=== PATIENT | male | born 1970 | race African-American/Black ===

== ENCOUNTER → 2020-02-11 15:14 | Outpatient (BNVA) | payer SELFPAY | PROVIDERS: PCP Internal Medicine; Visit Provider Physician Assistant ==

== ENCOUNTER → 2020-06-04 15:27 | Outpatient (BNVA) | payer OTHER, SELFPAY | PROVIDERS: PCP Internal Medicine; Visit Provider Internal Medicine ==

== ENCOUNTER → 2020-08-05 15:20 | Outpatient (BNVA) | payer OTHER, SELFPAY | PROVIDERS: PCP Internal Medicine; Visit Provider Internal Medicine ==

== ENCOUNTER 2020-10-31 11:28 | Emergency (ER) | payer OTHER, SELFPAY ==
[2020-10-31 11:47] VITALS: BP 153/99; PULSE 75; RESP 18; TEMP 36.6; O2SAT 96; BMI 32.1
[2020-10-31] MEDS: Amoxicillin/Potassium Clav 875 MG TABLET PO (13:19)
[2020-10-31] MEDS: dexAMETHasone 2 MG TABLET 10 MG PO (13:19)
[2020-10-31 13:34] LABS: IDNOW Serial# 08D9AD1C; Strep A Nucleic Acid Negative (Negative)
--- NOTE | 2020-10-31 14:04 | ED.GENADULT ---
HPI - General Adult General Chief complaint: Upper Respiratory Symptoms Stated complaint: swollen throat Time Seen by Provider: 10/31/20 12:41 Source: patient Mode of arrival: ambulatory History of Present Illness HPI narrative: 50-year-old male with a past medical history of KAREN on CPAP presenting to the ED complaining of throat/uvular swelling since this morning with painful swallowing. Reports mild radiation of pain to left ear. Denies fever, chills drainage from her, inability to handle side grew shins/swallow, cough, recent travel, sick contacts Onset (ago): hour(s) Related Data Previous Rx's Medication Instructions Recorded amoxicillin 875 mg-potassium 1 tab PO Q12H 7 Days #14 tab 10/31/20 clavulanate 125 mg tablet (Augmentin) Allergies Allergy/AdvReac Type Severity Reaction Status Date / Time ibuprofen [IBUPROFEN] Allergy Intermediate ITCHY Verified 10/31/20 11:47 EYES, RUNNY NOSE naproxen [Aleve] Allergy Unknown triggers Verified 10/31/20 11:47 asthma Review of Systems Review of Systems: Constitutional: No Fever, No Chills ENT/Mouth: + Ear Pain, No Nasal Congestion, No Hoarseness, + sore throat, No Rhinorrhea, No Swallowing Difficulty Cardiovascular: No Chest Pain, No SOB Respiratory: No Cough, No Wheezing Gastrointestinal: No Nausea, No Vomiting, No Abdominal pain Musculoskeletal: No joint pain, No Myalgias Skin: No Skin Lesions, No rash Yes all other systems are reviewed and are negative [facility] Past Medical History Attestation statement: The following information was validated with the patient. Medical History Obesity (BMI 30-39.9) KAREN on CPAP Social History Social History Alcohol intake: never Patient Tobacco Use Status: Never used Tobacco Use of substances other than those prescribed or required for medical reasons: No Advance Directives: No Advance Directives Information Provided: No Physical Exam Vital Signs: Vital Signs: Last Vital Signs Temp 97.8 F 10/31/20 11:47 Pulse 75 10/31/20 11:47 Resp 18 10/31/20 11:47 BP 153/99 H 10/31/20 11:47 Pulse Ox 96 10/31/20 11:47 Body Mass Index 32.1 Const: General: cooperative, healthy appearing and no acute distress Orientation/consciousness: patient oriented x3 Limitations: no limitations HENMT: Head: Yes normal to inspection Ears: hearing grossly normal bilaterally, external ears normal and TM's normal bilaterally General nose exam: Normal external nose present Face and sinus: Yes normal facial exam Throat: Yes tonsils normal, Yes uvula midline, No peritonsillar mass, No uvula laterally displaced and Yes uvular edema (+ uvular swelling) Eyes: General: appearance normal, both eyes and all related structures EOM: EOMs intact bilaterally Neck: Neck: Yes normal visual inspection Resp: Other: Talking in complete sentences, no respiratory distress, no stridor Effort & Inspection: normal respiratory effort, no audible wheezes, no pursed lip breathing, no respiratory distress, no stridor and no tripod positioning Auscultation: clear to auscultation bilaterally Cardio: Rate: regular rate Heart sounds: S1 normal heart sound present and S2 normal heart sound present GI: Inspection: Yes normal to inspection Skin: Rashes: no rashes Wounds: no wounds Neuro: General: patient oriented x3 Gait exam (Neuro): Normal gait present Extrem: General: Yes normal to inspection Course Course Course Narrative: -rapid strep negative. COVID-19/influenza/RSV pending however patient would like to be discharged prior to results, will call him with positive results Medical Decision Making MDM Narrative Medical decision making narrative: 50-year-old male with a past medical history of KAREN on CPAP presenting to the ED complaining of throat/uvular swelling since this morning with painful swallowing. On exam VSS, NAD, nontoxic appearing, talking in complete sentences, in no respiratory distress, handling secretions, no stridor, uvular edema/swelling noted on exam, tonsil WNL, no evidence of [employer]. Exam consistent with uvulitis. Will test for strep throat and COVID-19 Plan: PO Decadron, p.o. Augmentin, strict return precautions discussed with patient including continue to worsening swelling, difficulty breathing, wheezing, inability to handle secretions/follow/breath return to the ED immediately, he verbalized understanding Lab Data Labs: Lab Results 10/31/20 Range/Units 13:11 S. pyogenes GrpA JANAY Negative (Negative) Discharge Plan Discharge Clinical Impression: Uvulitis Patient Disposition: Home, Self-Care Instructions: Uvulitis (ED) Additional Instructions: You have inflammation of the uvula, your given an oral steroid today in the ED, Augmentin is also an antibiotic please take as prescribed You need to follow-up with her primary care doctor in the next 2 days If her swelling persists or worsens, you are unable to handle her oral secretions, you have fever, have any difficulty breathing or worsening oral swelling return to the ED immediately Prescriptions: New amoxicillin-pot clavulanate [Augmentin] 875-125 mg tablet 1 tab PO Q12H 7 Days Qty: 14 RF: 0 Referrals: Po,Edith Lassiter MD [Primary Care Provider] - 2 days Stand Alone Forms: Work/School Release
[2020-10-31 15:11] LABS: Influenza A PCR NEGATIVE (Negative); Influenza B PCR NEGATIVE (Negative); Resp Syncy Virus RNA Qual PCR NEGATIVE (Negative); SARS COV2 PCR INHOUSE NEGATIVE (Negative)
== END 2020-10-31 14:51 | disposition home or self-care (01) ==
PROVIDERS: Physician Assistant; Emergency Provider Emergency Medicine; PCP Internal Medicine
DX: K12.2 Cellulitis and abscess of mouth (principal); Z20.822 Contact with and (suspected) exposure to COVID-19; J02.9 Acute pharyngitis, unspecified
CPT/HCPCS: 0241U; 36415; 87651; 99283; 99284; J8540

== ENCOUNTER → 2021-02-11 16:03 | Outpatient (BNVA) | payer OTHER, SELFPAY | PROVIDERS: PCP Internal Medicine; Visit Provider Internal Medicine ==

== ENCOUNTER 2021-03-02 08:43 | Emergency (ER) | payer OTHER, SELFPAY ==
[2021-03-02 09:42] VITALS: BP 135/99; PULSE 112; RESP 18; TEMP 37.6; O2SAT 95; BMI 32.1
[2021-03-02 10:01] LABS: COVID-19 Test Positive (Negative)
--- NOTE | 2021-03-02 10:14 | ED_ITS ---
HPI - URI/Sore Throat General Chief Complaint: Upper Respiratory Symptoms Stated Complaint: Flu like symptoms/1 vaccine shot Time Seen by Provider: 03/02/21 09:34 Source: patient Mode of arrival: ambulatory Limitations: no limitations History of Present Illness HPI Narrative: 50-year-old male with history of diabetes, high blood pressure, sleep apnea, obesity here with reports of chills, body aches, cough, runny nose, headache since yesterday. Patient received 1 dose of Moderna but did not received any other doses COVID. No difficulty breathing, chest pain, abdominal pain, vomiting, diarrhea, fever. Related Data Allergies Allergy/AdvReac Type Severity Reaction Status Date / Time ibuprofen [IBUPROFEN] Allergy Intermediate ITCHY Verified 02/11/21 16:15 EYES, RUNNY NOSE naproxen [Aleve] Allergy Unknown triggers Verified 02/11/21 16:15 asthma Review of Systems Review of Systems: Yes all other systems are reviewed and are negative Constitutional: Constitutional: Reports no additional constitutional complaints, Reports body ache(s), Reports chills, Denies fever(s), Reports headache(s) and Denies weakness Eyes: Eyes: Reports no additional eye complaints and Denies change in vision ENT: Reports system reviewed and no additional complaints, except as documented, Denies dizziness, Reports headache(s), Denies nasal congestion, Reports nasal discharge and Denies neck pain Cardiovascular: Cardiovascular: Reports no additional cardiovascular complaints, Denies chest pain, Denies leg edema and Denies dyspnea Respiratory: Respiratory: Reports no additional respiratory complaints, Reports cough and Denies dyspnea Gastrointestinal: Gastrointestinal: Reports no additional gastrointestinal complaints, Denies abdominal pain, Denies diarrhea, Denies nausea and Denies vomiting Genitourinary: Genitourinary: Denies urinary incontinence Musculoskeletal: Musculoskeletal: Reports no additional musculoskeletal complaints, Denies back pain, Denies arthralgias, Denies joint swelling, Denies neck pain, Denies numbness and Denies tingling Integumentary/Breasts: Skin/Breast: Reports system reviewed and no additional complaints, except as docu and Denies rash Neurologic: Denies Abnormal speech present, Denies dizziness, Reports headache(s), Denies numbness, Denies tingling and Denies weakness [facility] Past Medical History Attestation statement: The following information was validated with the patient. Source: old records reviewed and nursing notes reviewed Medical History (Updated 03/02/21 @ 10:09 by Idalia Mixon NP) Asthma Borderline diabetes HTN (hypertension) Obesity (BMI 30-39.9) KAREN on CPAP Social History Social History Alcohol intake: never Patient Tobacco Use Status: Never used Tobacco Advance Directives: No Advance Directives Information Provided: No Physical Exam Vital Signs: Vital Signs: Last Vital Signs Temp 99.7 F 03/02/21 09:42 Pulse 112 H 03/02/21 09:42 Resp 18 03/02/21 09:42 BP 135/99 H 03/02/21 09:42 Pulse Ox 95 03/02/21 09:42 BMI result Body Mass Index 32.1 Const: General: cooperative, healthy appearing, comfortable and no acute distress Orientation/consciousness: patient oriented x3 Limitations: no limitations HENMT: Head: Yes normal to inspection Ears: hearing grossly normal bilaterally and TM's normal bilaterally General nose exam: Normal external nose present Face and sinus: Yes normal facial exam Mouth: Normal oral and palatal mucosa present Throat: Yes posterior oropharynx normal, Yes tonsils normal and Yes uvula midline Eyes: General: appearance normal, both eyes and all related structures Pupils: Equal, round and reactive pupils present Neck: Neck: Yes normal visual inspection, Yes full ROM, Yes no lymphadenopathy and Yes no meningeal signs Chest: Chest palpation & inspection: normal inspection of the chest Resp: Effort & Inspection: normal respiratory effort Auscultation: clear to auscultation bilaterally Cardio: Rate: regular rate Rhythm: regular rhythm Peripheral pulses: Peripheral pulses 2+ throughout GI: Inspection: Yes normal to inspection Palpation (GI): Soft to palpation and nontender Auscultation: normal bowel sounds Back/Spine/Pelvis: Thoracic/Lumbar Spine: thoracic and lumbar spine normal to inspection Skin: General skin exam: no rashes or lesions noted Neuro: General: patient oriented x3, no meningeal signs, no focal motor deficits and normal sensation to monofilament Cranial nerves: Yes Equal, round and reactive pupils present Cognition (Neuro): normal cognition Speech: No Abnormal speech present Gait exam (Neuro): Normal gait present Motor exam (neuro): 5/5 motor strength present throughout Extrem: General: Yes normal to inspection, Yes no pedal edema and Yes no calf tenderness Course Course Course Narrative: 50-year-old male here with cough, runny nose, chills, body aches and headache since last night. On arrival the patient is well appearing. Mild tachycardia with a low-grade fever. Speaking full sentences. Lung sounds clear. No hypoxia or tachypnea. Rapid COVID test is positive. We discussed quarantine of 10 days. We discussed monoclonal antibodies. A referral was sent to [facility] for the patient. He was given a copy of this. Reviewed worrisome signs and symptoms of when to return to the emergency department. Comfortable discharge home. MDM - URI/Sore Throat Medical Records Attestation: I reviewed the patient's medical records. Lab Data Attestation: I reviewed the patient's lab results. Labs: Lab Results 03/02/21 Range/Units 09:43 COVID-19 ([facility]) Positive A (Negative) COVID-19 Clin Com See Note Discharge Plan Discharge Clinical Impression: COVID-19 Patient Disposition: Home, Self-Care Instructions: COVID-19 (Coronavirus Disease 2019) (ED) Additional Instructions: Quarantine 10 days from onset of symptoms Tylenol for pain or fever See referral for monoclonal antibodies Return for shortness of breath or chest pain Referrals: Edith Kennedy MD [Primary Care Provider] - 2 days Stand Alone Forms: Work/School Release Interventions: ED Discharge Assessment Last Done: 03/02/21 10:19 Discharge Date/Time: 03/02/21 10:20
== END 2021-03-02 10:20 | disposition home or self-care (01) ==
PROVIDERS: Emergency Provider Emergency Medicine; PCP Internal Medicine
DX: U07.1 COVID-19 (principal); E11.9 Type 2 diabetes mellitus without complications; I10 Essential (primary) hypertension; J45.909 Unspecified asthma, uncomplicated
CPT/HCPCS: 36415; 87635; 99283

== ENCOUNTER 2021-03-06 13:07 | Emergency (ER) | payer OTHER, SELFPAY ==
--- NOTE | ~2021-03-06 | XR_ITS ---
EXAMINATION: XR CHEST CLINICAL INFORMATION: Chest pain. COMPARISON: 12/26/2014 chest radiographs. TECHNIQUE: Frontal view of the chest was obtained. FINDINGS: No significant abnormality is noted involving the heart, lungs, mediastinum, bony thorax or soft tissues. XR/XR chest 1V IMPRESSION: No acute cardiopulmonary process.
[2021-03-06 14:09] LABS: COVID-19 Test Positive (Negative); IDNOW Serial# 9DD0AD1C
[2021-03-06 15:46] VITALS: BP 166/107; PULSE 90; RESP 18; TEMP 36.9; O2SAT 95; BMI 32.1
--- NOTE | 2021-03-06 16:08 | ECG_ITS ---
Test Reason : CHEST PAIN Blood Pressure : / mmHG Vent. Rate : 092 BPM Atrial Rate : 092 BPM P-R Int : 148 ms QRS Dur : 102 ms QT Int : 366 ms P-R-T Axes : 065 -44 066 degrees QTc Int : 452 ms Normal sinus rhythm Left axis deviation Abnormal ECG When compared with ECG of 12-JUN-2013 15:24, QRS axis Shifted left Referred By: Virginia Lay Electronically Signed By:Zane Junior
--- NOTE | 2021-03-06 16:14 | ED_ITS ---
HPI - URI/Sore Throat General Chief Complaint: Upper Respiratory Symptoms Stated Complaint: +COVID symptoms worsening Time Seen by Provider: 03/06/21 16:00 Source: patient Mode of arrival: ambulatory Limitations: no limitations History of Present Illness HPI Narrative: 50-year-old male presents for chest pain and COVID positive symptoms. Was tested positive on 03/02/2021. States that his fatigue and muscle aches have increased since. MD elicited complaint: fever, cough and nasal congestion Onset (ago): week(s) (1) Consistency: constant Severity: moderate Description of mucous: clear Able to tolerate fluids by mouth: Yes Exacerbating factors: exertion Relieving factors: nothing Context: sick contacts Associated symptoms: fever, chills, myalgias, headache, nasal congestion, sore throat, cough and shortness of breath Treatments prior to arrival: acetaminophen Related Data Allergies Allergy/AdvReac Type Severity Reaction Status Date / Time ibuprofen [IBUPROFEN] Allergy Intermediate ITCHY Verified 03/06/21 15:46 EYES, RUNNY NOSE naproxen [Aleve] Allergy Unknown triggers Verified 03/06/21 15:46 asthma Review of Systems Review of Systems: Constitutional: positive Fever, positive Chills, positive fatigue, positive Malaise ENT/Mouth: positive sore throat, positive runny nose Eyes: No Discharge Cardiovascular: Positive Chest Pain, positive SOB Respiratory: positive Cough, No Sputum, No Wheezing, No Smoke Exposure, No Dyspnea Gastrointestinal: No Nausea, No Vomiting, No Diarrhea Genitourinary: no irregular bleeding, No Dysuria, No Urinary Frequency, No Hematuria, No Urinary Incontinence, No Urgency, No Flank Pain, Musculoskeletal: positive Myalgia Skin: No rash Neuro: positive Headache Yes all other systems are reviewed and are negative [facility] Past Medical History Attestation statement: The following information was validated with the patient. Source: old records reviewed Medical History Asthma Borderline diabetes HTN (hypertension) Obesity (BMI 30-39.9) KAREN on CPAP Social History Social History Alcohol intake: never Patient Tobacco Use Status: Never used Tobacco Advance Directives: No Advance Directives Information Provided: No Physical Exam Vital Signs: Vital Signs: Last Vital Signs Temp 99.3 F 03/06/21 18:48 Pulse 85 03/06/21 18:48 Resp 14 03/06/21 18:48 BP 146/100 H 03/06/21 18:48 Pulse Ox 96 03/06/21 18:48 BMI result Body Mass Index 32.1 Appearance: Alert. Oriented X3. mild distress. Eyes: Pupils equal, round and reactive to light. sclera nonicteric. EOMI. ENT: Pharynx normal. Moist mucous membranes. Neck: Normal inspection. Neck supple. No nuchal rigidity. CVS: Normal heart rate and rhythm. Pulses normal. Respiratory: No respiratory distress. Lung sounds clear to auscultation all lobes. Abdomen: Soft and nontender. Skin: Skin warm and dry. Normal skin color. Normal skin turgor. Extremities: No lower extremity edema. Moves all extremities against resistance. Gait well-balanced well coordinated. Neuro: No motor deficit. No sensory deficit. Cranial nerves 2-12 intact. Course Course Course Narrative: 50-year-old male known COVID positive on 03/02/2021 presents with chest pain, and persistent COVID symptoms. States that he has had fevers, chills, has muscle aches, chest pain and fatigue. He did not obtain monoclonal antibodies Referral that was given to him on 03/02 because he could not reach the facility. at this time, patient does have chest pain to palpation, even unlabored respirations, lungs clear to auscultation all lobes, O2 sat 95% on room air. Appears nontoxic but tired. Patient does have a history diabetes and hypertension will rule out ACS. Second trop is negative. Plan of care to discharge home and for patient follow- up with primary care physician and/or Cardiology as needed for hypertension. Patient verbalized understanding of and agrees to plan of care discharge home. MDM - URI/Sore Throat MDM Narrative Medical decision making narrative: ACS, COVID-19 Differential Diagnosis Differential diagnosis: Likely upper respiratory infection, viral infection, bronchitis and influenza Medical Records Attestation: I reviewed the patient's medical records. Lab Data Attestation: I reviewed the patient's lab results. Result diagrams: 03/06/21 16:28 03/06/21 16:28 Labs: Lab Results 03/06/21 03/06/21 03/06/21 Range/Units 13:35 16:28 16:28 WBC 7.7 (4.8-10.8) X10*3/uL RBC 5.33 (4.60-5.80) X10*6/uL Hgb 15.4 (14.0-18.0) g/dl Hct 45.8 (42.0-52.0) % MCV 85.9 (80.0-98.0) fL MCH 28.9 (27.0-33.0) pg MCHC 33.6 (31.0-36.0) g/dl RDW 12.4 (11.0-16.0) % Plt Count 188 (160-400) X10*3/uL MPV 9.5 (9.4-12.4) fL Immature Gran % (Auto) 0.3 (0.0-0.4) % Neut % (Auto) 57.2 (45-73) % Lymph % (Auto) 19.2 L (20-40) % Lawrence % (Auto) 22.6 H (2-11) % Eos % (Auto) 0.4 (0-4) % Baso % (Auto) 0.3 (0-2) % Lymph # (Auto) 1.5 (1.2-4.9) X10*3/uL Lawrence # (Auto) 1.7 H (0.1-1.2) X10*3/uL Eos # (Auto) 0.0 (0.0-0.4) X10*3/uL Baso # (Auto) 0.0 (0.0-0.2) X10*3/uL Abs Immat Gran (auto) 0.02 (0.00-0.03) X10*3/uL Absolute Neuts (auto) 4.4 (2.0-8.3) x10*3/uL Absolute Nucleated RBC 0.000 (0.0-0.012) X10*3/uL Nucleated RBC % (auto) 0.0 (0.0-0.2) /100WBC Smear Tech's Comments VERIFIED Sodium 139 (135-145) mmol/L Potassium 4.3 (3.3-5.1) mmol/L Chloride 103 (96-108) mmol/L Carbon Dioxide 27 (22-29) mmol/L Anion Gap 13 (12-20) BUN 17 H (9-16) mg/dL Creatinine 1.09 (0.5-1.4) mg/dL Estim Creat Clear Calc 101.8 Estimated GFR > 60 Random Glucose 74 (60-115) mg/dL Calcium 9.1 (8.4-10.2) mg/dL Troponin I High Sens (<3.5-35.0) ng/L COVID-19 ([facility]) Positive A (Negative) COVID-19 Clin Com See Note 03/06/21 03/06/21 Range/Units 16:28 18:50 WBC (4.8-10.8) X10*3/uL RBC (4.60-5.80) X10*6/uL Hgb (14.0-18.0) g/dl Hct (42.0-52.0) % MCV (80.0-98.0) fL MCH (27.0-33.0) pg MCHC (31.0-36.0) g/dl RDW (11.0-16.0) % Plt Count (160-400) X10*3/uL MPV (9.4-12.4) fL Immature Gran % (Auto) (0.0-0.4) % Neut % (Auto) (45-73) % Lymph % (Auto) (20-40) % Lawrence % (Auto) (2-11) % Eos % (Auto) (0-4) % Baso % (Auto) (0-2) % Lymph # (Auto) (1.2-4.9) X10*3/uL Lawrence # (Auto) (0.1-1.2) X10*3/uL Eos # (Auto) (0.0-0.4) X10*3/uL Baso # (Auto) (0.0-0.2) X10*3/uL Abs Immat Gran (auto) (0.00-0.03) X10*3/uL Absolute Neuts (auto) (2.0-8.3) x10*3/uL Absolute Nucleated RBC (0.0-0.012) X10*3/uL Nucleated RBC % (auto) (0.0-0.2) /100WBC Smear Tech's Comments Sodium (135-145) mmol/L Potassium (3.3-5.1) mmol/L Chloride (96-108) mmol/L Carbon Dioxide (22-29) mmol/L Anion Gap (12-20) BUN (9-16) mg/dL Creatinine (0.5-1.4) mg/dL Estim Creat Clear Calc Estimated GFR Random Glucose (60-115) mg/dL Calcium (8.4-10.2) mg/dL Troponin I High Sens 18.9 19.6 (<3.5-35.0) ng/L COVID-19 ([facility]) (Negative) COVID-19 Clin Com Imaging Data Chest x-ray: Attestation: I personally reviewed and interpreted this imaging study as follows: Radiologist's impression: EXAMINATION: XR CHEST CLINICAL INFORMATION: Chest pain. COMPARISON: 12/26/2014 chest radiographs. TECHNIQUE: Frontal view of the chest was obtained. FINDINGS: No significant abnormality is noted involving the heart, lungs, mediastinum, bony thorax or soft tissues. XR/XR chest 1V IMPRESSION: No acute cardiopulmonary process. ? ECG Data Attestation: I personally reviewed and interpreted this ECG as follows: ECG interpretation date: 03/06/21 ECG interpretation time: 16:20 Prior ECG tracings: available for review Interpretation: Vent. Rate : 092 BPM ? ? Atrial Rate : 092 BPM ?? P-R Int : 148 ms? QRS Dur : 102 ms ? ? QT Int : 366 ms ? ? ? P-R-T Axes : 065 -44 066 degrees ?? QTc Int : 452 ms ? Normal sinus rhythm Left axis deviation Abnormal ECG When compared with ECG of 12-JUN-2013 15:24, QRS axis Shifted left Discharge Plan Discharge Clinical Impression: COVID-19, Non-cardiac chest pain Hypertension Qualifiers: Hypertension type: primary hypertension Qualified Code(s): I10 - Essential (primary) hypertension Patient Disposition: Home, Self-Care Instructions: Covid-19 Viral Syndrome and Novel Coronavirus (ED) Hey/Ath, Hypertension (ED), Noncardiac Chest Pain (ED), Chest Wall Pain (ED), Hypertension and Diabetes (ED), COVID-19 (Coronavirus Disease 2019) (ED) Additional Instructions: You were evaluated for his symptoms consistent with COVID-19 as UR COVID-19 positive and chest pain. Your EKG is normal. Your cardiac enzymes are within normal limits. Please follow-up with Cardiology. You do have hypertension, continue to take your r blood pressure medications as prescribed. If he do not have any blood pressure medications prescribed to you must follow-up with her primary care physician as you need blood pressure medications to control your blood pressure. Thank you for choosing this emergency department for evaluation. Please follow-up with primary care physician as needed. Return to the emergency department for any new, concerning, or worsening symptoms. Referrals: Edith Kennedy MD [Primary Care Provider] - 2 days (Hypertension) Stand Alone Forms: Work/School Release Interventions: ED Discharge Assessment Last Done: 03/06/21 20:01 Discharge Date/Time: 03/06/21 20:56
[2021-03-06 16:33] LABS: Basophils Percent Auto 0.3 % (0-2); Eosinophils Percent Auto 0.4 % (0-4); Hematocrit 45.8 % (42.0-52.0); Hemoglobin 15.4 g/dl (14.0-18.0); Imm Gran Abs Auto 0.02 X10*3/uL (0.00-0.03); Imm Gran Pct Auto 0.3 % (0.0-0.4); Lymphocytes Absolute Auto 1.5 X10*3/uL (1.2-4.9); Lymphocytes Percent Auto 19.2 % (20-40); MANUAL DIFF FLAG SCAN; Mean Corpuscular HGB Conc 33.6 g/dl (31.0-36.0); Mean Corpuscular Hemoglobin 28.9 pg (27.0-33.0); Mean Corpuscular Volume 85.9 fL (80.0-98.0); Mean Platelet Volume 9.5 fL (9.4-12.4); Monocytes Absolute Auto 1.7 X10*3/uL (0.1-1.2); Monocytes Percent Auto 22.6 % (2-11); Neutrophils Absolute Auto 4.4 x10*3/uL (2.0-8.3); Neutrophils Percent Auto 57.2 % (45-73); Platelet Count 188 X10*3/uL (160-400); Red Blood Count 5.33 X10*6/uL (4.60-5.80); Red Cell Distribution Width 12.4 % (11.0-16.0); SCAN SMEAR FLAG 1; White Blood Count 7.7 X10*3/uL (4.8-10.8)
[2021-03-06 16:37] VITALS: BP 148/103; PULSE 87; RESP 18; TEMP 37.8; O2SAT 97
[2021-03-06 16:52] LABS: Troponin-I High Sensitivity 18.9 ng/L (<3.5-35.0)
[2021-03-06 16:54] LABS: SLIDE REVIEW VERIFIED
[2021-03-06] MEDS: Acetaminophen 325 MG TABLET 650 MG PO (17:00)
[2021-03-06 17:01] LABS: Anion Gap 13 (12-20); Blood Urea Nitrogen 17 mg/dL (9-16); Calcium 9.1 mg/dL (8.4-10.2); Carbon Dioxide 27 mmol/L (22-29); Chloride 103 mmol/L (96-108); Creatinine Clr Calc Pharmacy 101.8; Estimated Glomerular Filt Rate > 60; Glucose Random 74 mg/dL (60-115); Potassium 4.3 mmol/L (3.3-5.1); Sodium 139 mmol/L (135-145)
[2021-03-06 18:48] VITALS: BP 146/100; PULSE 85; RESP 14; TEMP 37.4; O2SAT 96
[2021-03-06 19:20] LABS: Troponin-I High Sensitivity 19.6 ng/L (<3.5-35.0)
== END 2021-03-06 20:56 | disposition home or self-care (01) ==
PROVIDERS: Nurse Practitioner Family; Emergency Provider Internal Medicine; PCP Internal Medicine
DX: U07.1 COVID-19 (principal); R07.89 Other chest pain; I10 Essential (primary) hypertension; R50.9 Fever, unspecified; R73.03 Prediabetes
CPT/HCPCS: 36415; 71045; 80048; 84484; 85025; 87635; 93005; 99283

== ENCOUNTER 2021-09-23 05:55 | Emergency (ER) | payer OTHER, SELFPAY ==
[2021-09-23 06:30] VITALS: BP 170/110; PULSE 78; RESP 20; TEMP 36.4; O2SAT 93; BMI 32.1
[2021-09-23 07:09] LABS: COVID-19 Test Negative (Negative); IDNOW Serial# 55D5AD1C; Influenza A Negative (Negative); Influenza B2 Negative (Negative)
--- NOTE | 2021-09-23 08:42 | ED_ITS ---
HPI - General Adult General Chief complaint: General Medical Stated complaint: sore throat, body aches Time Seen by Provider: 09/23/21 08:41 Source: patient and RN notes reviewed Limitations: no limitations History of Present Illness HPI narrative: This is a 51-year-old male, with a past medical history is asthma, pre diabetes, prehypertension, and KAREN, who presents today with complaints of sore throat, body aches, headaches, subjective fevers and chills x3 days. Patient reports an aching 8/10 sore throat pain that is constant but does not radiate increase in pain with swallowing. He reports that he still has been able to eat and denies any drooling. He denies any cough, chest pain, palpitations, nausea, vomiting, diarrhea, or abdominal pain. She has been taking Sudafed for his symptoms which has provided him with minimal relief. He denies any sick contacts. He denies any other complaints or concerns at this time. MD complaint: Sore throat x 3 days Onset (ago): day(s) Location: head Radiation: non-radiation Severity: moderate Severity scale (1-10): 8 Quality: aching Pain Consistency: constant Relieving factors: none Exacerbating factors: none Associated symptoms: fever/chills, headaches and malaise Treatments prior to arrival: none Related Data Previous Rx's Medication Instructions Recorded Magic Mouthwash 5 ml PO TID PRN swish and swallow 09/23/21 Diphen/Lido/Antacid 1:1:1 240 mL #240 mL suspension acetaminophen 300 mg-codeine 30 mg 1 tab PO Q8H PRN pain #10 tabs 09/23/21 tablet amoxicillin 875 mg-potassium 1 tab PO BID 10 days #20 tabs 09/23/21 clavulanate 125 mg tablet Allergies Allergy/AdvReac Type Severity Reaction Status Date / Time ibuprofen [IBUPROFEN] Allergy Intermediate ITCHY Verified 03/06/21 15:46 EYES, RUNNY NOSE naproxen [Aleve] Allergy Unknown triggers Verified 03/06/21 15:46 asthma Review of Systems Review of Systems: Constitutional : + Subjective Fevers, + Chills, No Weight loss, No Night Sweats, No Fatigue, No Malaise ENT/Mouth : + Sore throat, + Sinus pain, No Hearing loss, No Ear Pain, No Nasal Congestion, No Hoarseness, No Rhinorrhea, No Swallowing Difficulty Eyes: No Eye Pain, No Swelling, No Redness, No Foreign Body, No Discharge, No Vision Changes Cardiovascular : No Chest Pain, No SOB, No Dyspnea on Exertion, No Orthopnea, No Edema, No Palpitations Respiratory : No Cough, No Sputum, No Wheezing, No Smoke Exposure, No Dyspnea Gastrointestinal : No Nausea, No Vomiting, No Diarrhea, No Constipation, No abdominal Pain, No Hematochezia, No Melena Genitourinary : no irregular bleeding, No Dysuria, No Urinary Frequency, No Hematuria, No Urinary Incontinence, No Urgency, No Flank Pain, No Urinary Flow Changes, No Hesitancy Musculoskeletal : No joint pain, No Myalgias, No Joint Swelling Skin : No Skin Lesions, No rash Neuro : No Weakness, No Numbness, No Paresthesias, No Loss of Consciousness, No Dizziness, No Headache Psych : No Anxiety/Panic, No Depression, No SI/HI/AH/VH, No Social Issues, Heme/Lymph: No Bruising, No Bleeding,No Lymphadenopathy Endocrine : No Polyuria, No Polydipsia, No Temperature Intolerance Yes all other systems are reviewed and are negative [facility], [facility] Past Medical History Attestation statement: The following information was validated with the patient. Source: old records reviewed and nursing notes reviewed Medical History Asthma Borderline diabetes HTN (hypertension) Obesity (BMI 30-39.9) KAREN on CPAP Social History Social History Alcohol intake: never Patient Tobacco Use Status: Never used Tobacco Advance Directives: No Advance Directives Information Provided: Yes Physical Exam ED Vital Signs: Vital Signs - 24 hr 09/23/21 06:30 Temperature 97.6 F Pulse Rate 78 Respiratory Rate 20 Blood Pressure 170/110 H Pulse Oximetry 93 Oxygen Delivery Method Room Air BMI result Body Mass Index 32.1 Vital signs have been reviewed as normal and appeared to be correct. Blood pressure 170/110 Heart rate normal. Respiration rate normal. Temperature normal. Oxygen saturation normal. Appearance: Alert. Oriented X3. No acute distress. Head: Normal external exam. Normocephalic. Atraumatic. Eyes: PERRLA. EOMI. Conjunctiva and sclera normal. Eyelids normal. ENT: EAC normal. TM's Normal. Mild Muffled voice, handling secretions well, no drooling or trismus. Posterior pharynx is mildly erythematous, tonsils are non edematous, non exudative. Uvula is midline. Also soft and hard palate within normal limits. Moist mucous membranes. No lesions/ulcerations or masses noted on the tongue. Neck: Right anterior cervical lymphadenopathy. Normal inspection. Neck supple. FROM. Thyroid Normal. No tracheal deviation noted. No crepitus is noted. No meningeal signs. No neck mass noted. No signs of trauma noted. CVS: Normal heart rate and rhythm. Heart sound normal. Pulses normal throughout. No murmurs/rales/gallops. Respiratory: No respiratory distress. Painless inspiration. Breath sounds normal. No wheezes/rales/rhonchi noted. Chest nontender. No crepitus is noted. No signs of trauma noted. No accessory muscle usage noted or decreased air movement noted. Abdomen: Soft and nontender. Bowel sounds normal in all 4 quadrants. No distention noted. No organomegaly noted. No visible injury noted. Back: Full range of motion noted. Skin: Skin warm and dry. Normal skin color. Normal skin turgor. No rashes/lesions/lacerations noted. Extremities: Extremities exhibit normal range of motion and nontender. Neuro: Oriented X 3. No motor deficit. No sensory deficit. Reflexes normal. Normal steady gait. No focal neuro deficits noted. CN's II-XII intact bilaterally? Vascular: + radial pulses/+ 2 distal pedal pulses/+2 dorsalis pedis b/l. Normal cap refill. No cyanosis noted to upper extremity nails and lower extremity toes nails. Course Course Course Narrative: 0807 This is a 51-year-old male, with a past medical history is asthma, pre diabetes, prehypertension, and KAREN, who presents today with complaints of sore throat, body aches, headaches, subjective fevers and chills x3 days. On examination patient has right anterior cervical lymphadenopathy, posterior pharynx is mildly erythematous and edematous, muffled voice is noted however patient is handling secretions well without any trismus or drooling. Airway is patent. Patient has no difficulty swallowing or any difficulty breathing. We will treat patient with dexamethasone 10 mg p.o. in the emergency department today. We will also treat prophylactically with Augmentin 875 mg for 10 days, 1st dose of antibiotic given in the department today. Also given Tylenol 875 mg and Magic mouthwash for sore throat pain. Advised patient to not use Sudafed for his symptoms as this can increase his blood pressure and he has a history of pre hypertension. His blood pressure today is 170/110. Although he denies any cardiac related complaints. We explained to him if he does develop any cardiac related complaints and he would need to return immediately. Plan: COVID testing, influenza, and strep testing performed. COVID test influenza testing is negative. Strep test is still pending at this time. Medical Decision Making Medical Records Medical records reviewed: Yes I reviewed the patient's medical records. Lab Data Lab results reviewed: Yes I reviewed the patient's lab results. Labs: Lab Results 09/23/21 09/23/21 Range/Units 06:36 06:36 COVID-19 (RUDOLPH) Negative (Negative) COVID-19 Clin Com See Note Influenza Type A (JANAY) Negative (Negative) Influenza Type B (JANAY) Negative (Negative) Influenza A & B Note See Note Discharge Plan Discharge Clinical Impression: Acute sore throat Patient Disposition: Home, Self-Care Instructions: Pharyngitis (ED) Additional Instructions: Take prescribed antibiotic as directed, your given your 1st dose in the emergency department today, you will take your 2nd dose this evening. You may use Magic mouthwash or warm salt water gargles for pain relief. You can also use Tylenol or ibuprofen as directed as needed for pain. Do not take Sudafed as this increases your blood pressure. Your flu test and COVID test were negative today. If any new or worsening symptoms develop, especially if you develop any worsening neck swelling, drooling, or difficulty swallowing, please return for re-evaluation. Prescriptions: New amoxicillin-pot clavulanate 875-125 mg tablet 1 tab PO BID 10 Days Qty: 20 0RF Magic Mouthwash Diphen/Lido/Antacid 1:1:1 240 mL suspension 5 ml PO TID PRN (Reason: swish and swallow) Qty: 240 0RF Rx Instructions: Lidocaine Viscous 2 % 80mL; diphenhydramine 12.5 mg/5 mL 80mL; aluminum-mag hydrox-simeth [id number]-77xx/5mL 80mL acetaminophen-codeine 300-30 mg tablet 1 tab PO Q8H PRN (Reason: pain) Qty: 10 0RF Referrals: Po,Edith Lassiter MD [Primary Care Provider] - 2 days Stand Alone Forms: Work/School Release
[2021-09-23] MEDS: Acetaminophen 325 MG TABLET 975 MG PO (09:32)
[2021-09-23] MEDS: dexAMETHasone 2 MG TABLET 10 MG PO (09:37)
[2021-09-23] MEDS: Amoxicillin/Potassium Clav 875 MG TABLET PO (09:38)
[2021-09-23 09:50] LABS: Strep A Nucleic Acid Negative (Negative)
[2021-09-23] MEDS: Mag&Al/Sim/Diphenhyd/Lidocaine 10 ML ORAL.SUSP PO (11:19)
== END 2021-09-23 11:31 | disposition home or self-care (01) ==
PROVIDERS: Physician Assistant Medical; Emergency Provider Emergency Medicine; PCP Internal Medicine
DX: J02.8 Acute pharyngitis due to other specified organisms (principal); M79.10 Myalgia, unspecified site; R50.9 Fever, unspecified; R51.9 Headache, unspecified; Z20.822 Contact with and (suspected) exposure to COVID-19; Z79.899 Other long term (current) drug therapy
CPT/HCPCS: 36415; 87502; 87635; 87651; 99283; J8540

== ENCOUNTER → 2022-09-21 15:25 | Outpatient (BNVA) | payer SELFPAY | PROVIDERS: PCP Internal Medicine; Visit Provider Physician Assistant Medical | DX: Z02.79 Encounter for issue of other medical certificate (principal) ==

== ENCOUNTER → 2022-11-04 15:11 | Outpatient (BNVA) | payer SELFPAY | PROVIDERS: PCP Internal Medicine; Visit Provider Internal Medicine | DX: Z02.79 Encounter for issue of other medical certificate (principal) ==

== ENCOUNTER → 2022-12-09 15:06 | Outpatient (BNVA) | payer SELFPAY | PROVIDERS: PCP Internal Medicine; Visit Provider Physician Assistant Medical | DX: Z02.79 Encounter for issue of other medical certificate (principal) ==

== ENCOUNTER → 2023-03-10 14:34 | Outpatient (BNVA) | payer SELFPAY | PROVIDERS: PCP Internal Medicine; Visit Provider Physician Assistant Medical | DX: Z02.79 Encounter for issue of other medical certificate (principal) ==

== ENCOUNTER → 2023-08-09 15:00 | Outpatient (BNVA) | payer SELFPAY | PROVIDERS: PCP Internal Medicine; Visit Provider Registered Nurse | DX: Z02.79 Encounter for issue of other medical certificate (principal) ==

== ENCOUNTER → 2023-10-18 14:16 | Outpatient (BNVA) | payer SELFPAY | PROVIDERS: PCP Internal Medicine; Visit Provider Physician Assistant Medical | DX: Z02.79 Encounter for issue of other medical certificate (principal) ==

== ENCOUNTER → 2023-10-20 09:53 | Outpatient (BNVA) | payer OTHER, SELFPAY | PROVIDERS: PCP Internal Medicine; Visit Provider Physician Assistant | DX: S61.211A Laceration without foreign body of left index finger without damage to nail, initial encounter (principal); W26.8XXA Contact with other sharp object(s), not elsewhere classified, initial encounter; Z23 Encounter for immunization | CPT/HCPCS: 12002; 73140; 90715; 99204 ==

== ENCOUNTER → 2023-10-21 13:09 | Outpatient (BNVA) | payer OTHER, SELFPAY | PROVIDERS: PCP Internal Medicine; Visit Provider Physician Assistant Medical | DX: S61.211A Laceration without foreign body of left index finger without damage to nail, initial encounter (principal); X58.XXXA Exposure to other specified factors, initial encounter | CPT/HCPCS: 99213 ==

== ENCOUNTER → 2023-10-25 13:42 | Outpatient (BNVA) | payer OTHER, SELFPAY | PROVIDERS: PCP Internal Medicine; Visit Provider Physician Assistant Medical | DX: S61.211A Laceration without foreign body of left index finger without damage to nail, initial encounter (principal); W26.8XXA Contact with other sharp object(s), not elsewhere classified, initial encounter | CPT/HCPCS: 99213 ==

== ENCOUNTER → 2023-11-03 13:38 | Outpatient (BNVA) | payer OTHER, SELFPAY | PROVIDERS: PCP Internal Medicine; Visit Provider Physician Assistant Medical | DX: S61.211A Laceration without foreign body of left index finger without damage to nail, initial encounter (principal); W26.8XXA Contact with other sharp object(s), not elsewhere classified, initial encounter | CPT/HCPCS: 99213 ==

== ENCOUNTER → 2023-11-09 13:01 | Outpatient (BNVA) | payer OTHER, SELFPAY | PROVIDERS: PCP Internal Medicine; Visit Provider Physician Assistant | DX: S61.211D Laceration without foreign body of left index finger without damage to nail, subsequent encounter (principal); W26.8XXD Contact with other sharp object(s), not elsewhere classified, subsequent encounter | CPT/HCPCS: 99214 ==

== ENCOUNTER 2023-11-11 | Outpatient (RCR) | payer OTHER, SELFPAY | END 2024-01-27 14:06 | disposition home or self-care (01) | LOC: HO.WCC | PROVIDERS: PCP Internal Medicine; Visit Provider Surgery | DX: S61.211D Laceration without foreign body of left index finger without damage to nail, subsequent encounter (principal); R73.03 Prediabetes; R60.9 Edema, unspecified; X58.XXXD Exposure to other specified factors, subsequent encounter | CPT/HCPCS: 99212; 99213 ==

== ENCOUNTER → 2023-11-14 13:19 | Outpatient (BNVA) | payer OTHER, SELFPAY | PROVIDERS: PCP Internal Medicine; Visit Provider Physician Assistant Medical | DX: S61.211D Laceration without foreign body of left index finger without damage to nail, subsequent encounter (principal); W26.8XXD Contact with other sharp object(s), not elsewhere classified, subsequent encounter | CPT/HCPCS: 99213 ==

== ENCOUNTER → 2023-11-21 14:18 | Outpatient (BNVA) | payer OTHER, SELFPAY | PROVIDERS: PCP Internal Medicine; Visit Provider Physician Assistant Medical | DX: S61.211D Laceration without foreign body of left index finger without damage to nail, subsequent encounter (principal); W26.8XXD Contact with other sharp object(s), not elsewhere classified, subsequent encounter | CPT/HCPCS: 99213 ==

== ENCOUNTER 2023-11-28 14:30 | Outpatient (RCR) | payer OTHER, BC, SELFPAY ==
--- NOTE | 2023-11-16 15:03 | MHC.OT.EP ---
[address] [phone] Occupational Therapy Plan of Care Patient Name: Rodo Jeffers Jr Date of Evaluation: 11/16/23 Diagnosis: LACERATION R LATERAL INDEX FINGER Pain Location: L IF BURNING PAIN Pain Score: 5- 9/10 Pain Scale Used: Numeric (0 - 10) Aggravating Factors: GRIPPING, PRESSURE, ROM, BUMPING Alleviating Factors: TYLENOL, NOT ICING/ HEAT Assessment: MR JEFFERS IS THREE WEEKS POST INJURY TO DOMINANT L INDEX FINGER. HE LACERATED HIS FINGER WHILE PULLING DOWN A TAILGATE. HE CURRENTLY P/W IMPAIRED ROM, STRENGTH AND FINE MOTOR SKILLS. HE REMAINS OOW. HE STATES HE HAS BURNING PAIN, GREATEST WITH GRIPPING AND BUMPING. INFLAMMATION IS PRESENT THROUGHOUT THE IF. A 59% LIMITATION IS REPORTED PER THE QUICK DASH ASSESSMENT. Frequency and Duration: The patient will be seen 2X/WEEK FOR 4 WEEKS Short Term Goals: IND HEP IND EDEMA MANAGEMENT STRATEGIES ACHIEVE <2 CM TIP TO DPC IND WITH ADL CLOSURE BOARD Care Home Goals: L GROSS GRASP >25 POUNDS TOLERATE LIFTING AND CARRYING >10 POUNDS WITH <3/10 PAIN QUICK DASH <30% IND SCAR MOBILIZATION STRATEGIES Treatment Plan: Therapeutic Exercise Therapeutic Activity Home Exercise Program Splinting Neuro Re-ed Patient Education Desensitization/Sensory Re-ed Edema Control ADL Training Ultrasound NMES Iontophoresis Paraffin Fluidotherapy MHP Cold Packs Joint Mobilization Soft Tissue Mobilization Kinesiotaping Other (see comments) Electronically Signed By: ION BOYD/Leah Please Sign and return to therapist. Thank you once again for your referral.
--- NOTE | 2023-12-09 13:32 | MHC.OT.DC ---
[address] [phone] F: [phone] Occupational Therapy Discharge Note Patient Name: Rodo Jeffers Jr Provider: Tonya Bah Diagnosis: LACERATION R LATERAL INDEX FINGER Date of Evaluation: 11/16/23 Date of Discharge: 12/09/23 Treatments to Date: 4 Cancellations to Date: 0 No Shows to Date: 0 Discharge Status: Improved Function Independent with HEP Patient Elected to Stop Discharge Summary: MR JEFFERS WAS PROGRESSING WELL WITH HIS OT RX SESSIONS. HIS STRENGTH WAS IMPROVING, WELL HIS ROM. HE WAS CLEARED TO RETURN BACK TO WORK BY WORK CONNECTION. HE WISHES TO TRANSITION TO A HOME BASED PROGRAM AT THIS TIME DUE TO HIS WORK SCHEDULE. D/C OT. Electronically Signed By: IVET CADET OTR/L Reviewed/agree with student documentation: N/A Therapist: Please Sign and return to therapist, thank you for your referral.
== END 2023-12-09 13:30 | disposition home or self-care (01) ==
LOC: HO.OT 14:30
PROVIDERS: PCP Internal Medicine; Visit Provider Physician Assistant
DX: S61.210D Laceration without foreign body of right index finger without damage to nail, subsequent encounter (principal)
CPT/HCPCS: 97110; 97140; 97165

== ENCOUNTER → 2023-12-02 14:37 | Outpatient (BNVA) | payer OTHER, SELFPAY | PROVIDERS: PCP Internal Medicine; Visit Provider Physician Assistant Medical | DX: S61.211D Laceration without foreign body of left index finger without damage to nail, subsequent encounter (principal); W26.8XXD Contact with other sharp object(s), not elsewhere classified, subsequent encounter; M25.642 Stiffness of left hand, not elsewhere classified | CPT/HCPCS: 99213 ==

== ENCOUNTER → 2023-12-12 15:42 | Outpatient (BNVA) | payer OTHER, SELFPAY | PROVIDERS: PCP Internal Medicine; Visit Provider Physician Assistant Medical | DX: S61.211D Laceration without foreign body of left index finger without damage to nail, subsequent encounter (principal); W26.8XXD Contact with other sharp object(s), not elsewhere classified, subsequent encounter | CPT/HCPCS: 99213 ==

== ENCOUNTER → 2023-12-30 15:21 | Outpatient (BNVA) | payer OTHER, SELFPAY | PROVIDERS: PCP Internal Medicine; Visit Provider Physician Assistant Medical | DX: S61.211D Laceration without foreign body of left index finger without damage to nail, subsequent encounter (principal); W23.2XXD Caught, crushed, jammed or pinched between a moving and stationary object, subsequent encounter; M25.642 Stiffness of left hand, not elsewhere classified | CPT/HCPCS: 99213 ==

== ENCOUNTER 2024-01-10 15:24 | Outpatient (AMB) | payer OTHER, SELFPAY ==
--- NOTE | 2024-01-10 15:31 | MHC.OFFVIS ---
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 Patient rpeorts that his hand mgot caught in a tailgate of a truck, he was seen at after the injury where they cleaned and closed the wound. He completed a course of ABX. He explains that the finger is still swollen and stiff. He has some pain with ROM, pain is felt at the dip and pip joints. Denies numbness and tingling. 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 Patient rpeorts that his hand mgot caught in a tailgate of a truck, he was seen at after the injury where they cleaned and closed the wound. He completed a course of ABX. He explains that the finger is still swollen and stiff. He has some pain with ROM, pain is felt at the dip and pip joints. Denies numbness and tingling. HPI Comments Details: Rodo is a 53 year old left hand dominant male who presents today as a new patient referred by Work [facility] for a work related left 2nd digit laceration injury, DOI: 10/20/2023. Patient rpeorts that his hand mgot caught in a tailgate of a truck, he was seen at after the injury where they cleaned and closed the wound. He completed a course of ABX. He explains that the finger is still swollen and stiff. He has some pain with ROM, pain is felt at the dip and pip joints. Denies numbness and tingling. [facility]LY [facility] Medical History Asthma Borderline diabetes HTN (hypertension) Obesity (BMI 30-39.9) KAREN on CPAP Social History Alcohol intake: never Patient Tobacco Use Status: Never used Tobacco Physical Exam Extrem Other: Patient is alert, oriented, and in no acute distress. Neuro: Normal sensation of the tips of all digits of the left hand at this time Vascular: Cap refill brisk Pain: Patient reports minimal tenderness to palpation about the well-healed laceration site on the left index finger Patient does report some discomfort with making a closed fist with the left hand ROM: Patient is able to make a closed fist and extend all digits Skin: No lacerations or abrasions. General: There is noted to be some mild edema of the left index finger No ecchymosis, erythema, or evidence of infection. Psych: Appears grossly normal Affect normal Attitude cooperative Assessment & Plan Assessment & Plan (1) Laceration of left index finger: Code(s): S61.211A - Laceration without foreign body of left index finger without damage to nail, initial encounter Category: Medical Plan 1. Pain and stiffness with associated mild edema status post left 2nd digit laceration Date of injury 10/20/2023 Patient appears to be recovering fairly well from his injury Patient is educated about the typical recovery course At this time, patient was informed that there is no acute intervention indicated for this laceration, as he has full range of motion, normal sensation, and is not demonstrating any signs of infection or other complications Patient is educated that he has no work restrictions at this time Patient can follow-up as needed with any acute concerns Coding Level of Care Code New Pt Level 3 (60432) Diagnoses Laceration of left index finger S61.211A
== END 2024-01-10 15:47 | disposition home or self-care (01) ==
LOC: HO.HOS 15:25
PROVIDERS: PCP Internal Medicine
DX: S61.211A Laceration without foreign body of left index finger without damage to nail, initial encounter (principal)
CPT/HCPCS: 99203

== ENCOUNTER → 2024-01-10 15:24 | Outpatient (BNVA) | payer OTHER, SELFPAY | PROVIDERS: PCP Internal Medicine | DX: S61.211A Laceration without foreign body of left index finger without damage to nail, initial encounter (principal) | CPT/HCPCS: 99202 ==

== ENCOUNTER 2024-04-29 09:50 | Emergency (ER) | payer BC, SELFPAY ==
--- NOTE | ~2024-04-29 | XR_ITS ---
CLINICAL HISTORY: SOB 2 view chest x-ray Comparison: 12/26/2014 Findings: No consolidation or effusion. Heart size is normal. No acute fracture. IMPRESSION: 1. No acute findings. This document has been electronically signed by: Jennifer Kyle MD on 04/29/2024 10:54:09
[2024-04-29 09:56] VITALS: BP 162/106; PULSE 100; RESP 18; TEMP 37.2; O2SAT 94; BMI 32.4
--- NOTE | 2024-04-29 09:56 | ED_ITS ---
HPI - General Adult General Chief complaint: Upper Respiratory Symptoms Stated complaint: fever, low oxygen, high BP Time Seen by Provider: 04/29/24 11:57 Related Data Previous Rx's ?Medication ?Instructions ?Recorded oseltamivir 75 mg capsule (Tamiflu) 75 mg PO BID 5 days #10 caps 04/29/24 Allergies Allergy/AdvReac Type Severity Reaction Status Date / Time ibuprofen [IBUPROFEN] Allergy Intermediate ITCHY Verified 04/29/24 10:00 EYES, RUNNY NOSE naproxen [Aleve] Allergy Unknown triggers Verified 04/29/24 10:00 asthma PMFSH Past Medical History Medical History Borderline diabetes HTN (hypertension) Asthma KAREN on CPAP Obesity (BMI 30-39.9) Social History Social History Alcohol intake: never Patient Tobacco Use Status: Never used Tobacco Advance Directives: No Advance Directives Information Provided: No Do you have a plan to hurt others: No Plan Physical Exam ED Vital Signs: Vital Signs - 24 hr 04/29/24 09:56 04/29/24 15:11 Temperature 98.9 F 98.9 F Pulse Rate 100 90 Respiratory Rate 18 16 Blood Pressure 162/106 H 172/118 H Pulse Oximetry 94 94 Oxygen Delivery Method Room Air Room Air BMI result Body Mass Index 32.4 Course Course Course Narrative: RME performed by Marianna Cheung PA-C. Patient is a 53 year old assigned male at presenting to the emergency department with shortness of breath, fever. Detailed physical exam and review of systems are deferred to the respiratory clinician. EKG, labs, imaging, swabs ordered. Patient placed back in the waiting room pending room availability and results. Medical Decision Making Lab Data 04/29/24 10:08 04/29/24 10:08 Labs: Lab Results 04/29/24 04/29/24 04/29/24 Range/Units 10:08 12:27 14:45 WBC 4.9 (4.8-10.8) X10*3/uL RBC 5.57 (4.60-5.80) X10*6/uL Hgb 15.9 (14.0-18.0) g/dl Hct 46.0 (42.0-52.0) % MCV 82.6 (80.0-98.0) fL MCH 28.5 (27.0-33.0) pg MCHC 34.6 (31.0-36.0) g/dl RDW 13.2 (11.0-16.0) % Plt Count 161 (160-400) X10*3/uL MPV 9.3 L (9.4-12.4) fL Immature Gran % (Auto) 0.2 (0.0-0.4) % Neut % (Auto) 74.2 H (45-73) % Lymph % (Auto) 10.8 L (20-40) % Hidalgo % (Auto) 13.4 H (2-11) % Eos % (Auto) 1.0 (0-4) % Baso % (Auto) 0.4 (0-2) % Lymph # (Auto) 0.5 L (1.2-4.9) X10*3/uL Hidalgo # (Auto) 0.7 (0.1-1.2) X10*3/uL Eos # (Auto) 0.1 (0.0-0.4) X10*3/uL Baso # (Auto) 0.0 (0.0-0.2) X10*3/uL Abs Immat Gran (auto) 0.01 (0.00-0.03) X10*3/uL Absolute Neuts (auto) 3.7 (2.0-8.3) x10*3/uL Absolute Nucleated RBC 0.000 (0.0-0.012) X10*3/uL Nucleated RBC % (auto) 0.0 (0.0-0.2) /100WBC Sodium 141 (135-145) mmol/L Potassium 3.5 (3.3-5.1) mmol/L Chloride 106 (96-108) mmol/L Carbon Dioxide 21 L (22-29) mmol/L Anion Gap 18 (12-20) BUN 11 (9-16) mg/dL Creatinine 1.20 (0.5-1.4) mg/dL Estim Creat Clear Calc 87.2 Estimated GFR > 60 Random Glucose 101 (60-115) mg/dL Calcium 9.4 (8.4-10.2) mg/dL Magnesium 2.1 (1.6-2.6) mg/dL Total Bilirubin 0.5 (0.0-1.0) mg/dL AST 50 H (5-37) U/L ALT 45 H (0-40) U/L Alkaline Phosphatase 52 (39-117) U/L Troponin I High Sens 53.6 H 53.2 H 50.7 H (<3.5-35.0) ng/L Total Protein 8.4 H (6.5-8.0) g/dL Albumin 4.6 (3.5-5.0) g/dL Influenza Type A (PCR) POSITIVE A (Negative) Influenza Type B (PCR) NEGATIVE (Negative) RSV RNA Qual (PCR) NEGATIVE (Negative) SARS-CoV-2 RNA (RT-PCR) NEGATIVE (Negative) Discharge Plan Discharge Clinical Impression: Influenza Patient Disposition: Home, Self-Care Instructions: Influenza (ED) Prescriptions: New oseltamivir [Tamiflu] 75 mg capsule 75 mg PO BID 5 Days Qty: 10 0RF Referrals: Frank Paul MD [Physician] - 05/07/24 Print Language: Wolof
--- NOTE | 2024-04-29 09:58 | ECG_ITS ---
Test Reason : SOB Blood Pressure : */* mmHG Vent. Rate : 100 BPM Atrial Rate : 100 BPM P-R Int : 140 ms QRS Dur : 96 ms QT Int : 364 ms P-R-T Axes : 62 -65 37 degrees QTcB Int : 469 ms Normal sinus rhythm Possible Left atrial enlargement Left anterior fascicular block Abnormal ECG When compared with ECG of 06-Mar-2021 16:20, No significant change was found Referred By: Marianna Cheung Electronically Signed By: ANGELINA CHAIREZ
[2024-04-29 10:13] LABS: MANUAL DIFF FLAG NO
[2024-04-29 10:14] LABS: Basophils Percent Auto 0.4 % (0-2); Eosinophils Absolute Auto 0.1 X10*3/uL (0.0-0.4); Hemoglobin 15.9 g/dl (14.0-18.0); Imm Gran Abs Auto 0.01 X10*3/uL (0.00-0.03); Imm Gran Pct Auto 0.2 % (0.0-0.4); Lymphocytes Absolute Auto 0.5 X10*3/uL (1.2-4.9); Lymphocytes Percent Auto 10.8 % (20-40); Mean Corpuscular HGB Conc 34.6 g/dl (31.0-36.0); Mean Corpuscular Hemoglobin 28.5 pg (27.0-33.0); Mean Corpuscular Volume 82.6 fL (80.0-98.0); Mean Platelet Volume 9.3 fL (9.4-12.4); Monocytes Absolute Auto 0.7 X10*3/uL (0.1-1.2); Monocytes Percent Auto 13.4 % (2-11); Neutrophils Absolute Auto 3.7 x10*3/uL (2.0-8.3); Neutrophils Percent Auto 74.2 % (45-73); Platelet Count 161 X10*3/uL (160-400); Red Blood Count 5.57 X10*6/uL (4.60-5.80); Red Cell Distribution Width 13.2 % (11.0-16.0); White Blood Count 4.9 X10*3/uL (4.8-10.8)
--- OUTSIDE RECORDS SUMMARY | 2024-04-29 10:14 | XMS_ITS | Clinical Summary ---
Author Organization [facility] ity Address [address] [place] [address] Care Team Providers Care Supervisor [employer] Name Role Phone Hattie Vance MD Primary Care Provider [phone] Allergies Active Allergy Reactions Criticality Noted Date Comments Ibuprofen Wheezing 06/05/2018 Itching, SOB Naproxen Sodium Wheezing 06/05/2018 Itching, SOB Medications diclofenac (Voltaren) 1 % topical gel Place 2 g onto the skin 4 times daily as needed (As needed for wrist pain). 10/22/2019 Active albuterol HFA (PROAIR HFA ; PROVENTIL HFA ; VENTOLIN HFA) 90 mcg/actuation inhaler Inhale 2 Puffs into the lungs every 4 hours as needed for Cough or Wheezing. 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 Class 1 obesity 01/12/2019 Left varicocele 07/07/2018 Overview (02/09/2024): Confirmed w/ u/s - reviewed in office - on ongoing sx - will watch and wait Hypertension 06/28/2018 Pre-diabetes 06/16/2018 Overview (02/09/2024): HbA1c 6.4 % Intermittent asthma 06/05/2018 Surgical History Surgery Date Site/Laterality Comments OTHER SURGICAL HISTORY PROCEDURE: DENIES PREVIOUS SURGERY Medical History Medical History Date Comments Obesity (BMI 30-39.9) 06/05/2018 DX:Obesity (BMI 30-39.9) Intermittent asthma 06/05/2018 DX:Intermitt ent asthma Pre-diabetes 06/16/2018 DX:Pre-diabetes; COMMENT: HbA1c 6.4 % Family History Medical History Relation Name Comments Heart attack Father 50's No Known Problems Maternal Grandfather No Known Problems Maternal Grandmother No Known Problems Mother No Known Problems Paternal Grandfather No Known Problems Paternal Grandmother Other: unknown cancer Sister +smoke r, heart problems, pacemaker Relation Name Status Comments Father Maternal Grandfather Maternal Grandmother Mother Alive Paternal Grandfather Paternal Grandmother Alive Sister Alive Social History Tobacco Use Types Packs/Day Years Used Date Smoking Tobacco: Never Smokeless Tobacco: Never Alcohol Use Standard Drinks/Week Comments No 0 (1 standard drink = 0.6 oz pur e alcohol) Sex and Gender Information Value Date Recorded Sex Assigned at Not on file Legal Sex Male 7:53 AM EST Gender Identity Not on file Sexual Orientation Not on file Obstetrics History Plan of Treatment Upcoming Encounters Date Type Department Care Team (Late st Contact Info) Description 04/30/2024 3:00 PM EST Office Visit Adult Medicine [address] [id number] Barber Puente MD [address] [place] [id number] Health Maintenance Due Date Last Done Comments DTaP,Tdap,and Td Vaccines (1 - Tdap) 09/13/1991 Hepatitis B Vaccines (1 of 3 - 19+ 3-dose series) 09/13/1991 Pneumococcal Vaccine: 50+ Ye ars (1 of 2 - PCV) 09/13/1991 Pneumococcal Vaccine: Pediat rics (0 to 5 Years) and At-Risk Patients (6 to 64 Years) (1 of 2 - PCV) 09/13/1991 Colorectal Cancer Screening: Colonoscopy 02/07/2022 Depression Screening 02/07/2022 HIV Screening 02/07/2022 Hepatitis C Screening 02/07/2022 Social Influencers of Health Screening 02/07/2022 Hypertension/CHF/CAD Annual BMP Blood Test 02/17/2022 06/15/2018 Zoster Vaccines (1 of 2) 2022 Cholesterol Screening (Lipid Panel) 06/16/2023 06/15/2018 COVID-19 Vaccine (1 - 2023-2 5 season) 2023 Influenza Vaccine (#1) 2023 HIB Vaccines Aged Out No longer eligi ble based on patient's age to complete this topic HPV Vaccines Aged Out No longer eligi ble based on patient's age to complete this topic Hepatitis A Vaccines Aged Out No long er eligible based on patient's age to complete this topic IPV Vaccines Aged Out No longer eligi ble based on patient's age to complete this topic MMR Vaccines Aged Out No longer eligi ble based on patient's age to complete this topic Meningococcal ACWY Vaccine Aged Out N o longer eligible based on patient's age to complete this topic Meningococcal B Vacine Aged Out No lo nger eligible based on patient's age to complete this topic RSV Immunization Patients Un major 20 months Aged Out No longer eligible b ased on patient's age to complete this topic Varicella Vaccines Aged Out No longer eligible based on patient's age to complete this topic Procedures Procedure Name Priority Date/Time Associated Diagnosis Comments ANNUAL BMP BLOOD TEST Routine 06/15/2018 LIPID PANEL Routine 06/15/2018 from Last 3 Months or Most Recently Relevant to Health Maintenance Results * Annual BMP Blood Test (06/15/2018) Annual BMP Blood Test ABSTRACTED Historical Provider HEALTH MAINTENANCE Final Result * Lipid panel (06/15/2018) LDL/HDL Ratio 4 0 - 4 Triglycerides 93 0 - 150 mg/dL Cholesterol 154 0 - 200 mg/dL HDL 41 >=40 mg/dL LDL Cholesterol 95 0 - 100 mg/dL Blood Venous blood specimen / Unknown Historical Provider LAB BLOOD ORDERABLES Chinyere l Result from Last 3 Months or Most Recently Relevant to Health Maintenance Insurance [facility] Care Teams Supervisor [employer] Workers Relationship Specialty Start Date End Date Hattie Vance MD [address] [place] [address] PCP - General Internal Medicine 02/04/21
[2024-04-29 10:48] LABS: Alanine Aminotransferase 45 U/L (0-40); Albumin Level 4.6 g/dL (3.5-5.0); Alkaline Phosphatase 52 U/L (39-117); Anion Gap 18 (12-20); Aspartate Amino Transferase 50 U/L (5-37); Bilirubin Total 0.5 mg/dL (0.0-1.0); Blood Urea Nitrogen 11 mg/dL (9-16); Calcium 9.4 mg/dL (8.4-10.2); Carbon Dioxide 21 mmol/L (22-29); Chloride 106 mmol/L (96-108); Creatinine Clr Calc Pharmacy 87.2; Estimated Glomerular Filt Rate > 60; Glucose Random 101 mg/dL (60-115); Magnesium 2.1 mg/dL (1.6-2.6); Potassium 3.5 mmol/L (3.3-5.1); Sodium 141 mmol/L (135-145); Total Protein 8.4 g/dL (6.5-8.0)
[2024-04-29 10:52] LABS: Influenza A PCR POSITIVE (Negative); Influenza B PCR NEGATIVE (Negative); Resp Syncy Virus RNA Qual PCR NEGATIVE (Negative); SARS COV2 PCR INHOUSE NEGATIVE (Negative)
[2024-04-29 10:55] LABS: Troponin-I High Sensitivity 53.6 ng/L (<3.5-35.0)
--- NOTE | 2024-04-29 12:16 | ED_ITS ---
HPI - URI/Sore Throat General Chief Complaint: Upper Respiratory Symptoms Stated Complaint: fever, low oxygen, high BP Time Seen by Provider: 04/29/24 11:57 History of Present Illness HPI Narrative: Patient is a 53-year-old male with a history of hypertension history of borderline diabetes presents today with having coughing upper respiratory symptoms. The symptom has been ongoing for a week. But the fever has been ongoing for about 2 days. There is some mild nausea there is no vomiting there is no diarrhea patient is from home no travel history did not get vaccinated for COVID or flu influenza this year. Related Data Previous Rx's ?Medication ?Instructions ?Recorded oseltamivir 75 mg capsule (Tamiflu) 75 mg PO BID 5 days #10 caps 04/29/24 Allergies Allergy/AdvReac Type Severity Reaction Status Date / Time ibuprofen [IBUPROFEN] Allergy Intermediate ITCHY Verified 04/29/24 10:00 EYES, RUNNY NOSE naproxen [Aleve] Allergy Unknown triggers Verified 04/29/24 10:00 asthma Review of Systems 2 Review of Systems: Positive coughing congestion upper respiratory symptoms Yes all other systems are reviewed and are negative [facility] Past Medical History Attestation statement: The following information was validated with the patient. Medical History Borderline diabetes HTN (hypertension) Asthma KAREN on CPAP Obesity (BMI 30-39.9) Social History Social History Alcohol intake: never Patient Tobacco Use Status: Never used Tobacco Advance Directives: No Advance Directives Information Provided: No Do you have a plan to hurt others: No Plan Physical Exam 2 Vital Signs: Vital Signs: Last Vital Signs Temp 98.9 F 04/29/24 15:11 Pulse 90 04/29/24 15:11 Resp 16 04/29/24 15:11 BP 172/118 H 04/29/24 15:11 Pulse Ox 94 04/29/24 15:11 O2 Del Method Room Air 04/29/24 15:11 BMI result Body Mass Index 32.4 Appearance: Alert. Oriented X3. No acute distress. Eyes: Pupils equal, round and reactive to light. ENT: Pharynx normal. Neck: Normal inspection. Neck supple. No lymph nodes noted. No crepitus CVS: Normal heart rate and rhythm. Pulses normal. Normal S1 and S2 Respiratory: No respiratory distress. Breath sounds normal. No Wheezing. No rales Abdomen: Soft and nontender. No rigidity. No distention. good BS x4 Skin: Skin warm and dry. Normal skin color. Normal skin turgor. Extremities: No lower extremity edema. Neurovascular intact to all extremities. No Lacerations. No Rash Neuro: Oriented X 3. No motor deficit. No sensory deficit. Moving all extermities. No slurred speech Medical Decision Making Medical Decision Making [facility] Narrative: Patient presented today with having fever coughing congestion upper respiratory symptoms. Influenza came back positive. My interpretation of patient's chest x-ray is grossly negative. I reviewed radiology's reading of the chest x-ray which was also negative. My interpretation of patient's EKG showed a sinus rhythm heart rate was 90 IN QRS QTC normal there is nonspecific T-wave flattening noted in lead 3. When I compared to an old EKG this is essentially the same. We repeated the EKG at approximately 02:30 it was essentially unchanged from the 1st. It showed a sinus rhythm heart rate was 80 IN QRS QTC normal there is nonspecific T-wave flattening noted. Patient's troponin was drawn at triage. It was elevated at in the 50s. I repeated 2 sets of cardiac enzymes. They were both essentially unchanged. Patient's history not consistent with ACS. Two sets of EKGs were not changed. Case consulted by the cardiology team. Feel comfortable with having patient follow-up on an outpatient basis in the setting of positive influenza history consistent with influenza positive troponin but negative workup otherwise. Currently in stable condition will discharge home Differential Diagnosis Differential Diagnoses: The differential diagnosis associated with the presentation includes Influenza, pneumonia, ACS Admission/Observation Consideration of admission/observation: Escalation of care including admission/observation considered Considered for admission given the elevated troponin but multiple sets of enzymes are negative consulted Cardiology feel comfortable with follow-up Consult Healthcare Provider Management of the patient was discussed with: Chief Concierge (Dr. Paul from Cardiology) Lab Data [facility] Lab Attestation statement: I reviewed the patient's lab results. 04/29/24 10:08 04/29/24 10:08 Labs: Lab Results 04/29/24 04/29/24 04/29/24 Range/Units 10:08 12:27 14:45 WBC 4.9 (4.8-10.8) X10*3/uL RBC 5.57 (4.60-5.80) X10*6/uL Hgb 15.9 (14.0-18.0) g/dl Hct 46.0 (42.0-52.0) % MCV 82.6 (80.0-98.0) fL MCH 28.5 (27.0-33.0) pg MCHC 34.6 (31.0-36.0) g/dl RDW 13.2 (11.0-16.0) % Plt Count 161 (160-400) X10*3/uL MPV 9.3 L (9.4-12.4) fL Immature Gran % (Auto) 0.2 (0.0-0.4) % Neut % (Auto) 74.2 H (45-73) % Lymph % (Auto) 10.8 L (20-40) % Nuckolls % (Auto) 13.4 H (2-11) % Eos % (Auto) 1.0 (0-4) % Baso % (Auto) 0.4 (0-2) % Lymph # (Auto) 0.5 L (1.2-4.9) X10*3/uL Nuckolls # (Auto) 0.7 (0.1-1.2) X10*3/uL Eos # (Auto) 0.1 (0.0-0.4) X10*3/uL Baso # (Auto) 0.0 (0.0-0.2) X10*3/uL Abs Immat Gran (auto) 0.01 (0.00-0.03) X10*3/uL Absolute Neuts (auto) 3.7 (2.0-8.3) x10*3/uL Absolute Nucleated RBC 0.000 (0.0-0.012) X10*3/uL Nucleated RBC % (auto) 0.0 (0.0-0.2) /100WBC Sodium 141 (135-145) mmol/L Potassium 3.5 (3.3-5.1) mmol/L Chloride 106 (96-108) mmol/L Carbon Dioxide 21 L (22-29) mmol/L Anion Gap 18 (12-20) BUN 11 (9-16) mg/dL Creatinine 1.20 (0.5-1.4) mg/dL Estim Creat Clear Calc 87.2 Estimated GFR > 60 Random Glucose 101 (60-115) mg/dL Calcium 9.4 (8.4-10.2) mg/dL Magnesium 2.1 (1.6-2.6) mg/dL Total Bilirubin 0.5 (0.0-1.0) mg/dL AST 50 H (5-37) U/L ALT 45 H (0-40) U/L Alkaline Phosphatase 52 (39-117) U/L Troponin I High Sens 53.6 H 53.2 H 50.7 H (<3.5-35.0) ng/L Total Protein 8.4 H (6.5-8.0) g/dL Albumin 4.6 (3.5-5.0) g/dL Influenza Type A (PCR) POSITIVE A (Negative) Influenza Type B (PCR) NEGATIVE (Negative) RSV RNA Qual (PCR) NEGATIVE (Negative) SARS-CoV-2 RNA (RT-PCR) NEGATIVE (Negative) Independent Interpretation I performed an independent interpretation of an: EKG (My interpretation of patient's both EKG as above) and Plain X-Ray (My interpretation patient's chest x-ray is negative) Radiology Impression Discussion of test interpretation with radiology: I have reviewed the radiologist's reading. Independent Historian Clinical information obtained from an independent historian. History obtained from or confirmed by: Spouse Chronic Conditions Patient?s care impacted by: Hypertension Discharge Plan Discharge Clinical Impression: Influenza Patient Disposition: Home, Self-Care Instructions: Influenza (ED) Prescriptions: New oseltamivir [Tamiflu] 75 mg capsule 75 mg PO BID 5 Days Qty: 10 0RF Referrals: Frank Paul MD [Physician] - 05/07/24 Print Language: Lithuanian
[2024-04-29 12:56] LABS: Troponin-I High Sensitivity 53.2 ng/L (<3.5-35.0)
--- NOTE | 2024-04-29 14:20 | ECG_ITS ---
Test Reason : CHEST PAIN Blood Pressure : */* mmHG Vent. Rate : 84 BPM Atrial Rate : 84 BPM P-R Int : 148 ms QRS Dur : 96 ms QT Int : 380 ms P-R-T Axes : 66 -83 58 degrees QTcB Int : 449 ms Normal sinus rhythm Possible Left atrial enlargement Left anterior fascicular block Abnormal ECG When compared with ECG of 29-Apr-2024 10:03, No significant change was found Referred By: Maria Sierra Electronically Signed By: ANGELINA CHAIREZ
[2024-04-29 15:10] LABS: Troponin-I High Sensitivity 50.7 ng/L (<3.5-35.0)
[2024-04-29 15:11] VITALS: BP 172/118; PULSE 90; RESP 16; TEMP 37.2; O2SAT 94
[2024-04-29 16:00] VITALS: BP 172/118; PULSE 90; RESP 16; TEMP 37.2; O2SAT 94
== END 2024-04-29 16:18 | disposition home or self-care (01) ==
PROVIDERS: Physician Assistant Medical; Emergency Provider Emergency Medicine Emergency Medical Services
DX: J10.1 Influenza due to other identified influenza virus with other respiratory manifestations (principal); R07.89 Other chest pain; R50.9 Fever, unspecified; R11.0 Nausea; R06.02 Shortness of breath; Z79.899 Other long term (current) drug therapy; Z03.818 Encounter for observation for suspected exposure to other biological agents ruled out
CPT/HCPCS: 0241U; 36415; 71046; 80053; 83735; 84484; 85025; 93005; 99283; 99285

== ENCOUNTER → 2024-04-29 09:57 | Outpatient (BNV) | payer BC, SELFPAY | PROVIDERS: Visit Provider Radiology Diagnostic Radiology | DX: R06.02 Shortness of breath (principal) | CPT/HCPCS: 71046 ==

== ENCOUNTER → 2024-04-29 14:20 | Outpatient (BNV) | payer BC, SELFPAY | PROVIDERS: Emergency Provider Emergency Medicine Emergency Medical Services; Visit Provider Internal Medicine | DX: I44.4 Left anterior fascicular block (principal) | CPT/HCPCS: 93010 ==

== ENCOUNTER 2024-08-24 16:18 | Outpatient (AMB) | payer BC, SELFPAY ==
--- NOTE | 2024-08-24 16:19 | MHC.PC.OV ---
Vital Signs 08/24/24 16:20 Height 5 ft 10 in Weight 224 lb 8 oz BMI 32.2 BP 140/98 H Blood Pressure Location Lt brachial Position Sitting Pulse 71 Pulse Source Pulse Oximeter Pulse Oximetry (%) 97 Oxygen Delivery Method Room Air Intake Visit Reasons: annual physical Supervisor [employer] Required: No Accompanied by: Self / Same As Patient Allergies ibuprofen (IBUPROFEN) Allergy (Intermediate, Verified 08/24/24 16:20) ITCHY EYES, RUNNY NOSE naproxen (Aleve) Allergy (Unknown, Verified 08/24/24 16:20) triggers asthma Tobacco use date assessed: 08/24/24 Dental Screening Dental Screen Date: 08/24/24 Did you have a dental visit in the last 12 months?: No Did you have a dental problem in the last 6 months where you did not have access to dental care?: No Was dental information given to patient?: No [facility] Medical History (Updated 08/24/24 @ 16:46 by Edith Kennedy MD) Borderline diabetes HTN (hypertension) Asthma KAREN on CPAP Obesity (BMI 30-39.9) Social History Housing: Apartment Alcohol intake: never Patient Tobacco Use Status: Never used Tobacco e-Cigarette/Vaping Use: Never Used service: No Current occupational status: employed Current occupational exposures/hazards: Yes Cognitive needs: No Hearing needs: No Vision needs: No Review of Systems Const Denies poor appetite and Denies weakness Eyes Denies no additional complaints ENT Reports Normal hearing present, Denies dizziness, Denies nasal congestion, Denies tinnitus and Denies sore throat Card Denies chest pain, Denies syncope, Denies rapid heart rate and Denies dyspnea Resp Denies cough and Denies dyspnea GI Denies change in stool character, Reports constipation, Denies diarrhea, Denies nausea and Denies vomiting Denies dysuria and Denies urinary frequency Neuro Reports Normal hearing present, Denies confusion, Denies dizziness, Denies syncope and Denies weakness Psych Denies confusion Physical exam (Primary Care) Vital Signs: Last Vital Signs Pulse 71 08/24/24 16:20 BP 140/98 H 08/24/24 16:20 Pulse Ox 97 08/24/24 16:20 Oxygen Delivery Method Room Air 08/24/24 16:20 BMI result Body Mass Index 32.2 Tobacco/Smoking Status: Tobacco use Status Tobacco use date assessed 08/24/24 08/24/24 16:21 Patient Tobacco Use Status Never used Tobacco 08/24/24 16:21 e-Cigarette/Vaping Use Never Used 08/24/24 16:21 Const General: No confusion Orientation/consciousness: No confusion HENMT Head: Yes normocephalic Ears: external ears normal and TM's normal bilaterally Face and sinus: Yes normal facial exam Mouth: moist mucous membranes Throat: Yes tonsils normal Eyes Conjunctivae: conjunctivae normal Pupils: Equal, round and reactive pupils present and Pupil accommodation reflex normal Direct Ophthalmoscopy: normal light reflex Neck Neck: No lymphadenopathy Thyroid: Thyroid normal Chest Chest palpation & inspection: normal inspection of the chest Resp Effort & Inspection: normal respiratory effort and no audible wheezes Auscultation: clear to auscultation bilaterally, no crackles, no wheezes and lung sounds not diminished Cardio Rate: regular rate Rhythm: regular rhythm Peripheral pulses: radial pulses present and dorsalis pedis present GI Palpation (GI): no masses Auscultation: normal bowel sounds and normoactive bowel sounds Rectal Exam - Male: Yes deferred Skin General skin exam: no rashes or lesions noted Rashes: no rashes Neuro General: No confusion Cranial nerves: Yes Equal, round and reactive pupils present and Yes Normal hearing present Cognition (Neuro): normal cognition Gait exam (Neuro): Normal gait present Motor exam (neuro): 5/5 motor strength present throughout Deep tendon reflexes (DTR's): Right brachioradialis reflex intensity grade: 2+, Left brachioradialis reflex intensity grade: 2+, Right patellar reflex intensity grade: 2+ and Left patellar reflex intensity grade: 2+ Extrem General: No edema Coding Level of Care Code Est Pt Prev Care 40-64y(69183) Diagnoses Annual physical exam Z00.00 HTN (hypertension) I10 Obesity (BMI 30-39.9) E66.9 KAREN on CPAP G47.33; Z99.89 Colon cancer screening Z12.11 Assessment & Plan Assessment & Plan (1) Annual physical exam: Code(s): Z00.00 - Encounter for general adult medical examination without abnormal findings Category: Medical Plan: Patient is advised to eat healthy, keep well hydrated, keep active and have adequate sleep. (2) HTN (hypertension): Code(s): I10 - Essential (primary) hypertension Category: Medical Plan: Monitor blood pressure low-salt diet. (3) Obesity (BMI 30-39.9): Comment: His baseline weight was 244 lb. He has lost about 17 lb. SO FAR. HE IS MOTIVATED AND WILL KEEP ON LOSING WEIGHT SLOWLY. Code(s): E66.9 - Obesity, unspecified Category: Medical Plan: Diet and exercise (4) KAREN on CPAP: Comment: He has been using bilevel CPAP with pressure setting of 18/10 CMS Tolerates the CPAP better than before. Not much bloating, since he has been chewing two tabs of Mylicon before putting on the mask . He does have some air leak issue. Instructed to tighten the straps somewhat better. Code(s): G47.33 - Obstructive sleep apnea (adult) (pediatric); Z99.89 - Dependence on other enabling machines and devices Category: Medical Plan: Continue to use the CPAP more than 4 hours a night and benefits from this (5) Colon cancer screening: Code(s): Z12.11 - Encounter for screening for malignant neoplasm of colon Category: Medical Plan: Patient is reminded about colonoscopy Plan History of Present Illness The patient is a 53-year-old male presenting for a physical examination and management of chronic conditions. The patient has a history of obstructive sleep apnea, for which he uses a CPAP machine nightly. He reports adherence to using the CPAP for more than four hours each night, which he finds beneficial. The patient has a history of hypertension, with recent blood pressure readings noted as high, including a measurement of 160/100 mmHg. He has not been on antihypertensive medication previously and is considering starting treatment. The patient reports a history of asthma but has not experienced an attack in a long time. The patient has elevated blood glucose levels noted in recent lab work. Preventative care measures discussed include colon cancer screening, which the patient has not undergone recently. Health Maintenance - Colon cancer screening discussed, patient reminded of the importance of undergoing a colonoscopy. - Blood pressure monitoring advised, with emphasis on lifestyle modifications including a low-salt diet. - Advised to continue CPAP usage for obstructive sleep apnea management. - Discussion on reducing caffeine intake and avoiding energy drinks to manage hypertension. Social History - Denies alcohol, tobacco, and recreational drug use. - Reports adherence to CPAP therapy for sleep apnea. - Dietary habits include occasional consumption of low-sodium foods, but acknowledges high sugar intake. Review of Systems - General: Denies fever, weight loss, or fatigue. - Respiratory: Reports history of asthma, denies recent attacks. - Cardiovascular: Reports history of hypertension, denies chest pain or palpitations. - Gastrointestinal: Denies nausea, vomiting, or changes in bowel habits. - Neurological: Denies dizziness or syncope. Physical Exam General: Cooperative, healthy appearing, comfortable, no acute distress and well developed Orientation: Patient oriented x3 Limitations: No limitations Head: Normal to inspection Ears: Hearing grossly normal bilaterally Nose: Normal external nose present Face and sinus: Normal facial exam Eyes: Appearance normal, both eyes and all related structures Neck: Normal visual inspection and Yes full ROM Respiratory: Normal respiratory effort and able to speak in complete sentences. Clear to auscultation bilaterally Cardiovascular: Regular rate and rhythm. Normal S1 and S2 GI: Normal to inspection. Soft to palpation and nontender Skin: No rashes or lesions noted Neuro: Patient oriented x3 Extremities: Normal to inspection Results - Labs: Blood glucose levels noted as elevated. - Imaging: Chest X-ray reported as negative. Plan The patient will continue using the CPAP machine for obstructive sleep apnea management, as it has been beneficial. Lifestyle modifications, including a low-salt diet and regular monitoring of blood pressure, are advised to manage hypertension. The patient is advised to reduce caffeine intake and avoid energy drinks to help control blood pressure. A colonoscopy is recommended for colon cancer screening, as the patient has not undergone this recently. Follow-up is suggested in three months to reassess blood pressure and overall health status. Patient was informed and verbally consented to the use of an ambient scribe for clinic note documentation during this visit. Discussion Notes I discussed with the patient the importance of continuing CPAP therapy for obstructive sleep apnea and the benefits observed from its use. We reviewed the need for lifestyle changes, including dietary modifications and regular blood pressure monitoring, to manage hypertension. I advised the patient to reduce caffeine intake and avoid energy drinks to help control blood pressure. We discussed the need for a colonoscopy for colon cancer screening, given the patient's age and lack of recent screening. A follow-up appointment was suggested in three months to evaluate blood pressure and overall health. Patient Instructions - Continue using CPAP machine nightly for sleep apnea. - Follow a low-salt diet and monitor blood pressure regularly. - Reduce caffeine intake and avoid energy drinks. - Schedule a colonoscopy for colon cancer screening. - Return for follow-up in three months or sooner if issues arise. Orders: Orders Complete Blood Count Auto Diff Today E66.9 - Obesity, unspecified Lipid Panel Today E66.9 - Obesity, unspecified, E78.00 - Pure hypercholesterolemia, unspecified Prostate Specific Antigen Scr Today E66.9 - Obesity, unspecified Comprehensive Met. Panel Today E66.9 - Obesity, unspecified Free T4 (Free Thyroxine) Today E66.9 - Obesity, unspecified Thyroid Stimulating Hormone Today E66.9 - Obesity, unspecified Vitamin B12 and Folate Today E66.9 - Obesity, unspecified Hemoglobin A1c Today E66.9 - Obesity, unspecified Medications: New lisinopril 5 mg PO DAILY 30 tabs 3RF I10 - Essential (primary) hypertension
[2024-08-24 16:20] VITALS: BP 140/98; PULSE 71; O2SAT 97; BMI 32.2
== END 2024-08-24 17:12 | disposition home or self-care (01) ==
PROVIDERS: Visit Provider Internal Medicine
DX: Z00.00 Encounter for general adult medical examination without abnormal findings (principal); I10 Essential (primary) hypertension; E66.9 Obesity, unspecified; Z68.32 Body mass index [BMI] 32.0-32.9, adult; G47.33 Obstructive sleep apnea (adult) (pediatric); Z99.89 Dependence on other enabling machines and devices; Z12.11 Encounter for screening for malignant neoplasm of colon

== ENCOUNTER → 2024-08-24 16:18 | Outpatient (BNVA) | payer BC, SELFPAY | PROVIDERS: Visit Provider Internal Medicine ==

== ENCOUNTER 2024-09-14 09:31 | Outpatient (REF) | payer BC, SELFPAY ==
[2024-09-14 09:41] LABS: MANUAL DIFF FLAG NO
--- OUTSIDE RECORDS SUMMARY | 2024-09-14 09:47 | XMS_ITS | Patient Health Record ---
Author Organization [facility] Address [address] [place] [address] Care Team Providers Care Precision Millwright Name Role Phone Edith Kennedy MD Primary Care Provider Andres Barragan Jr Unavailable [phone] Allergies Allergen (clinical drug ingredient) Drug/Non Drug Allergy documented on EMR Reaction Allergy Type Onset Date Status ibuprofen Ibuprofen Unknown Drug Allergy Active Aleve Unknown Drug Allergy Active Reason For Referral No Information Medications Medication SIG (Take, Route, Fr equency, Duration) Notes Start Date End Date Status ProAir HFA Active Albuterol 03/07/2024 03/07/2024 Active MoviPrep 100 GM as directed before c olonoscopy Orally for 1 dose 06/21/2012 03/07/2024 Active Problems Problem Type SNOMED Code ICD Code Onset Dates Problem Status W/U Status Risk Notes Problem Diarrhea (64606563) Diarrhea (787.91) Active confirmed Problem Colon cancer screening (207148367) Colon cancer screening (V76.51) Active confirmed Plan Of Treatment Future Test Test Name Order Date COLONOSCOPY 06/21/2012 Insurance Providers Payer Name Payer Address Payer Phone Subscriber Number Group Number Insured Name Patient Relationship to Insured Coverage Start Date Coverage End Date O BLUE [employer] PROFESSIONAL CLAIMS [address] [place] [address] [id number] ZEYADSIERRA DIAZ Self - patient is the insured Medical (General) History Medical History History ICD Code Denies [place],DM,CVA,renal disease Asthma
[2024-09-14 10:24] LABS: Hematocrit 48.2 % (42.0-52.0); Hemoglobin 16.2 g/dl (14.0-18.0); Imm Gran Abs Auto 0.02 X10*3/uL (0.00-0.03); Imm Gran Pct Auto 0.4 % (0.0-0.4); Lymphocytes Absolute Auto 1.9 X10*3/uL (1.2-4.9); Mean Corpuscular HGB Conc 33.6 g/dl (31.0-36.0); Mean Corpuscular Hemoglobin 28.0 pg (27.0-33.0); Mean Corpuscular Volume 83.2 fL (80.0-98.0); NRBC Abs Auto 0.000 X10*3/uL (0.0-0.012); NRBC Pct Auto 0.0 /100WBC (0.0-0.2); Platelet Count 181 X10*3/uL (160-400); Red Blood Count 5.79 X10*6/uL (4.60-5.80); White Blood Count 4.7 X10*3/uL (4.8-10.8)
[2024-09-14 10:32] LABS: Hemoglobin A1C 156.0099 umol/L; Total Hemoglobin (HGBA1C) 4210.5079 umol/L
[2024-09-14 10:59] LABS: Alanine Aminotransferase 43 U/L (0-40); Albumin Level 4.9 g/dL (3.5-5.0); Alkaline Phosphatase 64 U/L (39-117); Anion Gap 11 (12-20); Aspartate Amino Transferase 38 U/L (5-37); Blood Urea Nitrogen 19 mg/dL (9-16); Calcium 9.0 mg/dL (8.4-10.2); Carbon Dioxide 27 mmol/L (22-29); Chloride 107 mmol/L (96-108); Cholesterol 188 mg/dL (<200); Estimated Glomerular Filt Rate > 60; HDL Cholesterol 53 mg/dL (>40); Potassium 3.9 mmol/L (3.3-5.1); Sodium 141 mmol/L (135-145); Total Protein 7.9 g/dL (6.5-8.0); Triglycerides 66 mg/dL (<150)
[2024-09-14 11:18] LABS: Free T4 (Free Thyroxine) 0.96 ng/dL (0.71-1.85); Thyroid Stimulating Hormone 4.97 uIU/mL (0.32-4.0)
[2024-09-14 11:22] LABS: Folate 7.0 ng/mL (> or = 4.0); Vitamin B12 352 pg/mL (200-900)
== END 2024-09-14 09:32 | disposition home or self-care (01) ==
LOC: HO.LAB 09:31
PROVIDERS: PCP Internal Medicine; Visit Provider Internal Medicine
DX: E66.9 Obesity, unspecified (principal); E78.00 Pure hypercholesterolemia, unspecified; Z12.5 Encounter for screening for malignant neoplasm of prostate; Z13.1 Encounter for screening for diabetes mellitus
CPT/HCPCS: 36415; 80053; 80061; 82607; 82746; 83036; 84153; 84439; 84443; 85025

== ENCOUNTER → 2024-10-10 14:53 | Outpatient (BNVA) | payer OTHER, SELFPAY | PROVIDERS: PCP Internal Medicine; Visit Provider Physician Assistant | DX: Z02.79 Encounter for issue of other medical certificate (principal) ==

== ENCOUNTER 2024-10-25 15:41 | Outpatient (AMB) | payer BC, SELFPAY ==
--- OUTSIDE RECORDS SUMMARY | 2024-10-25 15:44 | XMS_ITS ---
Author Name [facility] Organization Unknown Care Team Organization Name Specialty Phone Email Start Date End [facility] 05/12/202210/05 [facility] Term[facility], PROVIDER Primary Care 01/12/202210/05
[2024-10-25 15:45] VITALS: BP 160/94; PULSE 56; O2SAT 96; BMI 31.6
--- NOTE | 2024-10-25 15:45 | A.OFFVIS_ITS ---
Vital Signs 10/25/24 15:45 Height 5 ft 10 in Weight 220 lb 7.396 oz BMI 31.6 BP 160/94 H Blood Pressure Location Lt brachial Position Sitting Pulse 56 Pulse Source Pulse Oximeter Pulse Oximetry (%) 96 Oxygen Delivery Method Room Air Intake Visit Reasons: Obstructive sleep apnea Intake Note: pt is here for follow up of KAREN, and not too tired throughout the day, his machine is greater than 5 years and he is using a nasal mask. Practice Clinician Required: No Allergies ibuprofen (IBUPROFEN) Allergy (Intermediate, Verified 10/25/24 16:32) ITCHY EYES, RUNNY NOSE naproxen (Aleve) Allergy (Unknown, Verified 10/25/24 16:32) triggers asthma Medication List - Last Reconciled 10/25/24 by Mauro Douglas MD lisinopril 5 mg PO DAILY Do you need a note to return to daycare/school/sports/work: No HPI HPI Obstructive sleep apnea: Details: This 54 years old gentleman is a known case of obstructive sleep apnea, had initial sleep study back in 2020 , and has been using BiPAP since then. He had a CPAP titration in which is was determined that he needs bilevel pressure of 18/10 cm. After he started on the CPAP he had a few follow-up visits and was noted to be using CPAP very regularly and successfully. Since late 2020 he has not come back for any follow-ups. Now he needed to have a follow-up visit because his machine was showing residual apnea with AHI of as high as 34. He claims that he uses CPAP very regularly every night. Currently using the nasal mask which is more comfortable. Apparently there is no significant air leak because the compliance report , as per compliance report. The current compliance report is showing that he has residual AHI of 34 and most of it is due to central apneas. This gentleman has had no neurologic disease or injuries. He does not have any cardiac disease/congestive heart failure He categorically denies using any narcotic meds. He does not drink alcohol. So why he has residual central apneas, is not clear. Compared to back in 2020 he has lost significant weight, from his baseline of 244 lb down to 220 at present. [facility] Medical History (Updated 10/25/24 @ 16:44 by Mauro Douglas MD) Central sleep apnea Borderline diabetes HTN (hypertension) Asthma KAREN on CPAP Obesity (BMI 30-39.9) Social History Housing: Apartment Alcohol intake: never Patient Tobacco Use Status: Never used Tobacco e-Cigarette/Vaping Use: Never Used service: No Current occupational status: employed Current occupational exposures/hazards: Yes Cognitive needs: No Hearing needs: No Vision needs: No Review of Systems Const All systems reviewed & are unremarkable except as noted in HPI and below Eyes Reports no additional complaints ENT Reports nasal congestion (OFF AND ON ESPECIALLY AT NIGHTS) Card Reports no additional complaints Resp Reports no additional complaints GI Reports no additional complaints Musc Reports back pain (MILD OFF AND ON) Skin/Breast Reports system reviewed and no additional complaints, except as documented Neuro Reports no additional complaints Endo Reports no additional complaints Physical Exam Vital Signs: Last Vital Signs Pulse 56 10/25/24 15:45 BP 160/94 H 10/25/24 15:45 Pulse Ox 96 10/25/24 15:45 Oxygen Delivery Method Room Air 10/25/24 15:45 BMI result Body Mass Index 31.6 Const General: healthy appearing (EXCEPT FOR BEING OVERWEIGHT, WEIGHT IS DOWN BY 2-3 LB THIS TIME) Orientation/consciousness: patient oriented x3 HEENT Head: Yes normal to inspection General nose exam: No nasal polyps present, No nasal discharge present and Other nasal findings present (MILD NASAL CONGESTION) Face and sinus: Yes sinuses nontender Mouth: oropharynx normal Throat: Yes posterior oropharynx normal Eyes General: appearance normal, both eyes and all related structures Neck Neck: Yes normal visual inspection, Yes no lymphadenopathy, Yes trachea midline and Yes no JVD Thyroid: Thyroid normal Chest Chest palpation & inspection: normal inspection of the chest, normal palpation of entire chest wall and no tenderness Resp Effort & Inspection: normal respiratory effort Auscultation: clear to auscultation bilaterally Percussion: percussion normal Cardio Palpation: normal PMI Rate: regular rate Rhythm: regular rhythm Heart sounds: no gallops and no murmurs Peripheral pulses: Peripheral pulses 2+ throughout GI Palpation (GI): Soft to palpation, nontender, No hepatosplenomegaly present and no masses Auscultation: normal bowel sounds Back/Spine/Pelvis Thoracic/Lumbar Spine: thoracic and lumbar spine normal to inspection Skin General skin exam: no rashes or lesions noted Neuro General: patient oriented x3 and no focal motor deficits Cranial nerves: Yes CN's II-XII intact bilaterally Extrem General: Yes normal to inspection, Yes no clubbing, cyanosis or edema and Yes no calf tenderness Psych Appearance: grossly normal and well kempt Speech and movement: Normal speech and movement present Results Reviewed Results Reviewed: COMPLIANCE REPORT FOR THE LAST 30 NIGHTS SHOWS THAT HE HAS USED 24/30 NIGHTS, 80%. AVERAGE USE IT PER NIGHT 5 HOURS 36 MINUTES. HIS PRESSURE SETTING IS 20/8 CM. THERE IS NO AIR LEAK. RESIDUAL AHI 34.5 CENTRAL APNEA INDEX 30 AND OBSTRUCTIVE APNEA INDEX 4, SO MOST OF THE RESIDUAL AHI IS DUE TO CENTRAL APNEAS. Assessment & Plan Assessment & Plan (1) Obesity (BMI 30-39.9): Comment: His baseline weight was 244 lb. He has lost about 24 lbs lb. Since 2020 now he has the moderate obesity. Code(s): E66.9 - Obesity, unspecified Category: Medical Plan: Discussed with him about the weight and it will be helpful if he can lose about 10-15 more lb of weight. (2) KAREN on CPAP: Comment: He has been using bilevel CPAP with pressure setting of 20/8 CMS Tolerates the CPAP well, and his compliance is good. Currently using nasal mask which is more comfortable. The problem of residual AHI secondary to predominantly central apneas, is puzzling in his case, because as noted in the history there are no contributing factors. It is very possible that the pressure setting is high enough to produce treatment emergent central apneas. Code(s): G47.33 - Obstructive sleep apnea (adult) (pediatric); Z99.89 - Dependence on other enabling machines and devices Category: Medical Plan: See the plan under central apnea (3) Central sleep apnea: Comment: He has significant residual apneas which are mostly central apneas. No clear-cut cause is identified for the central apneas. There is possibility that his pressure settings are high then he needs, and he could be having treatment emergent central apneas. Code(s): G47.31 - Primary central sleep apnea Category: Medical Plan: Plan is to schedule him for a sleep based CPAP titration study . He may do well just with planes CPAP at lower pressure level . If planes CPAP or BiPAP do not resolve his central apneas, then he is going to need treatment with ASV mode / iVAPS Orders: Orders RT PSG in-lab sleep titration Today G47.31 - Primary central sleep apnea, G47.33 - Obstructive sleep apnea (adult) (pediatric), Z99.89 - Dependence on other enabling machines and devices Coding Level of Care Code Est Pt Level 4 (29484) Diagnoses Obesity (BMI 30-39.9) E66.9 KAREN on CPAP G47.33; Z99.89 Central sleep apnea G47.31
== END 2024-10-25 16:13 | disposition home or self-care (01) ==
LOC: HO.HPS 15:41
PROVIDERS: PCP Internal Medicine; Visit Provider Internal Medicine
DX: E66.9 Obesity, unspecified (principal); G47.33 Obstructive sleep apnea (adult) (pediatric); Z99.89 Dependence on other enabling machines and devices; G47.31 Primary central sleep apnea
CPT/HCPCS: 99214

== ENCOUNTER → 2024-11-19 19:30 | Outpatient (REF) | payer BC, SELFPAY ==
--- OUTSIDE RECORDS SUMMARY | 2024-11-19 21:53 | XMS_ITS | Patient Health Record ---
Author Organization [facility] Address [address] [place] [address] Care Team Providers Care Hearing Aid Repair Technician Name Role Phone Edith Kennedy MD Primary Care Provider Andres Barragan Jr Unavailable Allergies Allergen (clinical drug ingredient) Drug/Non Drug [...] Status W/U Status Risk Notes Problem Diarrhea (04390044) Diarrhea (787.91) Active confirmed Problem Colon cancer screening (863496701) Colon cancer screening (V76.51) Active confirmed Plan Of Treatment Future Test Test Name Order Date COLONOSCOPY 06/21/2012 Insurance Providers Payer Name Payer Address Payer Phone Subscriber Number Group Number Insured Name Patient Relationship to Insured Coverage Start Date Coverage End Date O BLUE [employer] PROFESSIONAL CLAIMS [address] [place] [address] [id number] ZEYADSIERRA DIAZ Self - patient is the insured Medical (General) History Medical History History ICD Code Denies [place],DM,CVA,renal disease Asthma
== END ==
LOC: HO.SL 19:30
PROVIDERS: PCP Internal Medicine; Visit Provider Internal Medicine
DX: G47.33 Obstructive sleep apnea (adult) (pediatric) (principal); Z99.89 Dependence on other enabling machines and devices
CPT/HCPCS: 95811

== ENCOUNTER → 2024-11-19 20:42 | Outpatient (BNV) | payer BC, SELFPAY | PROVIDERS: PCP Internal Medicine; Visit Provider Internal Medicine | DX: G47.33 Obstructive sleep apnea (adult) (pediatric) (principal) | CPT/HCPCS: 95811 ==

== ENCOUNTER 2024-12-20 15:38 | Outpatient (AMB) | payer BC, SELFPAY ==
[2024-12-20 15:47] VITALS: BP 136/88; PULSE 86; O2SAT 98; BMI 30.4
--- NOTE | 2024-12-20 15:47 | MHC.PC.OV ---
Vital Signs 12/20/24 15:47 Height 5 ft 10 in Weight 212 lb BMI 30.4 BP 136/88 Blood Pressure Location Lt brachial Position Sitting Pulse 86 Pulse Source Pulse Oximeter Pulse Oximetry (%) 98 Oxygen Delivery Method Room Air Intake Visit Reasons: Hypertension Allergies ibuprofen (IBUPROFEN) Allergy (Intermediate, Verified 12/20/24 15:48) ITCHY EYES, RUNNY NOSE naproxen (Aleve) Allergy (Unknown, Verified 12/20/24 15:48) triggers asthma Tobacco use date assessed: 08/24/24 Dental Screening Dental Screen Date: 08/24/24 ON LICENSE OF [facility] Medical History (Updated 12/20/24 @ 16:17 by Ediht Kennedy MD) Central sleep apnea Borderline diabetes HTN (hypertension) Asthma KAREN on CPAP Obesity (BMI 30-39.9) Social History Housing: Apartment Alcohol intake: never Patient Tobacco Use Status: Never used Tobacco Tobacco use type: Cigarette e-Cigarette/Vaping Use: Never Used Second Hand Smoke Exposure: No service: No Current occupational status: employed Current occupational exposures/hazards: Yes Cognitive needs: No Hearing needs: No Vision needs: No Questionnaire PHQ-9 Over the last 2 weeks, how often have you been bothered by any of the following problems? 1. Little interest or pleasure in doing things: not at all 2. Feeling down, depressed, or hopeless: not at all 3. Trouble falling or staying asleep, or sleeping too much: not at all 4. Feeling tired or having little energy: not at all 5. Poor appetite or overeating: not at all 6. Feeling bad about yourself - or that you are a failure or have let yourself or your family down: not at all 7. Trouble concentrating on things, such as reading the newspaper or watching television: not at all 8. Moving or speaking so slowly that other people could have noticed. Or the opposite - being so fidgety or restless that you have been moving around a lot more than usual: not at all 9. Thoughts that you would be better off or of hurting yourself in some way: not at all Total score: 0 Source: Developed by Drs. Damon Delgadillo, Stephanie GarciaBora and colleagues, with an educational fouzia from [employer]. Thrive Questionnaire Date Thrive assessed: 12/20/24 I am a: Patient What is your living situation today?: I have a steady place to live Within the past 12 months, did the food you bought not last and you didn't have the money to get more?: Never true Within the past 12 months, did you worry whether your food would run out before you got money to buy more?: Never true Do you have trouble paying for medicines?: I choose not to answer this question Do you have trouble getting transportation to medical appointments?: No Do you have trouble paying your heating and electricity bill?: I choose not to answer this question Do you have trouble taking care of your child, family member or friend?: No Do you have trouble with day-to-day activities such as bathing, preparing meals, shopping, managing finances, etc.?: No Are you currently unemployed and looking for a job?: No Are you interested in more education?: Yes Please select the resources that you would like help with: Job search/training and Education Currently or been in a relationship where the following occur: No concerns reported THRIVE Score: 0 AUDIT C Alcohol Use Questionnaire (AUDIT-C) 1. How often do you have a drink containing alcohol?: Never 3. How often do you have six or more drinks on one occasion?: Never Total Score: 0 DANIELLE-7 AMB Questionnaire DANIELLE-7 Date DANIELLE - 7 assessed: 12/20/24 Feeling nervous, anxious, or on edge: 0 = Not at all Not being able to stop or control worryin = Not at all Worrying too much about different things: 0 = Not at all Trouble relaxin = Not at all Being so restless that it is hard to sit still: 0 = Not at all Becoming easily annoyed or irritable: 0 = Not at all Feeling afraid as if something awful might happen: 0 = Not at all Total DANIELLE-7 score (0-4 normal; 5-9 mild; 10-14 moderate; 15-21 severe): 0 Source: Developed by Drs. Damon Delgadillo, Bora Sal and colleagues, with an educational fouzia from [employer]. Physical exam (Primary Care) Vital Signs: Last Vital Signs Pulse 86 12/20/24 15:47 BP 136/88 12/20/24 15:47 Pulse Ox 98 12/20/24 15:47 Oxygen Delivery Method Room Air 12/20/24 15:47 BMI result Body Mass Index 30.4 Tobacco/Smoking Status: Tobacco use Status Tobacco use date assessed 08/24/24 12/20/24 15:48 Patient Tobacco Use Status Never used Tobacco 12/20/24 15:48 Tobacco use type Cigarette 12/20/24 15:48 e-Cigarette/Vaping Use Never Used 12/20/24 15:48 PHQ-9: PHQ-9 Score PHQ-9: Total score 0 12/20/24 15:48 Thrive Assessment: Date of Thrive Assessment Date Thrive assessed 12/20/24 12/20/24 15:48 Currently or been in a relationship where the following occur: No concerns reported Const General: alert; No acute distress Eyes Conjunctivae: conjunctivae normal Resp Auscultation: clear to auscultation bilaterally Cardio Rate: regular rate Rhythm: regular rhythm GI Inspection: Yes normal to inspection Extrem General: Yes normal to inspection and No edema Coding Level of Care Code Est Pt Level 4 (44357) Complex EM visit Add On G2211 Diagnoses HTN (hypertension) I10 Obesity (BMI 30-39.9) E66.9 Colon cancer screening Z12.11 KAREN on CPAP G47.33; Z99.89 LFT elevation R79.89 TSH elevation R79.89 Assessment & Plan Assessment & Plan (1) HTN (hypertension): Code(s): I10 - Essential (primary) hypertension Category: Medical Plan: Continue with blood pressure medication. Decrease salt intake and exercise on lisinopril 5 mg once a day (2) Obesity (BMI 30-39.9): Comment: His baseline weight was 244 lb. He has lost about 24 lbs lb. Since 2020 now he has the moderate obesity. Code(s): E66.9 - Obesity, unspecified Category: Medical Plan: Noted weight loss. Continue (3) Colon cancer screening: Code(s): Z12.11 - Encounter for screening for malignant neoplasm of colon Category: Medical Plan: Discussed about colon cancer screening (4) KAREN on CPAP: Comment: He has been using bilevel CPAP with pressure setting of 20/8 CMS Tolerates the CPAP well, and his compliance is good. Currently using nasal mask which is more comfortable. The problem of residual AHI secondary to predominantly central apneas, is puzzling in his case, because as noted in the history there are no contributing factors. It is very possible that the pressure setting is high enough to produce treatment emergent central apneas. Code(s): G47.33 - Obstructive sleep apnea (adult) (pediatric); Z99.89 - Dependence on other enabling machines and devices Category: Medical Plan: Of the last sleep Pap test appreciated and recommendations noted (5) LFT elevation: Code(s): R79.89 - Other specified abnormal findings of blood chemistry Category: Medical Plan: Discussed about repeated blood test (6) TSH elevation: Code(s): R79.89 - Other specified abnormal findings of blood chemistry Category: Medical Plan: Advised repeat test Plan History of Present Illness The patient is a 54-year-old male presenting for a follow-up visit. The patient has a history of obesity, with a recent weight loss of 8 pounds noted. He also has obstructive sleep apnea, for which he uses CPAP therapy, although compliance has been suboptimal. Hypertension is another ongoing condition, managed with lisinopril 5 mg daily. The patient's blood pressure is reportedly well-controlled with this regimen. In 2012, the patient underwent a colonoscopy that revealed a tubular adenoma. Follow-up with gastroenterology is planned to ensure no further polyps have developed. Recent blood work indicated mildly elevated liver enzymes and a slightly abnormal thyroid function test. An ultrasound of the liver and repeat blood tests have been recommended to further investigate these findings. Health Maintenance - Colon cancer screening: Follow-up with gastroenterology for colonoscopy due to previous tubular adenoma. - Liver health: Ultrasound and repeat blood tests recommended for elevated liver enzymes. - Thyroid monitoring: Follow-up blood tests for mildly abnormal thyroid function. - Vaccinations: Discussion about shingles vaccine, available at pharmacies. Social History - Exercise: Patient has lost 8 pounds, indicating some level of physical activity or dietary change. Review of Systems - Respiratory: Denies cough, dyspnea, or shortness of breath. - Gastrointestinal: Reports normal bowel movements, denies nausea. - Genitourinary: Reports normal urination. Physical Exam - Respiratory: Breathing low Results - Labs: Normal blood count, mild glucopenia, normal electrolytes, creatinine 1.12 mg/dL, normal blood sugar, mildly elevated liver enzymes, mildly abnormal thyroid function (TSH 4.97). Plan Patient was informed and verbally consented to the use of an ambient scribe for clinic note documentation during this visit. 1. Obesity The patient has been advised to continue with weight management strategies, as evidenced by an 8-pound weight loss. Discussion Notes During the visit, I discussed the importance of follow-up for the patient's tubular adenoma with gastroenterology and the need for a repeat colonoscopy. We also reviewed the patient's blood work, noting mildly elevated liver enzymes and a slightly abnormal thyroid function, and recommended further testing. I advised the patient on the availability of the shingles vaccine at pharmacies and discussed its benefits. Patient Instructions - Continue using CPAP machine as prescribed to manage sleep apnea. - Follow up with gastroenterology for a repeat colonoscopy. - Schedule an ultrasound for liver evaluation and repeat blood tests as advised. - Consider getting the shingles vaccine from a pharmacy. Orders: Orders Free T4 (Free Thyroxine) Today R79.89 - Other specified abnormal findings of blood chemistry Thyroid Stimulating Hormone Today R79.89 - Other specified abnormal findings of blood chemistry Liver Panel Today R79.89 - Other specified abnormal findings of blood chemistry Hepatitis B,C Profile Today R79.89 - Other specified abnormal findings of blood chemistry US abdomen complete Today R79.89 - Other specified abnormal findings of blood chemistry Referrals Gastroenterology Referral Z12.11 - Encounter for screening for malignant neoplasm of colon
--- OUTSIDE RECORDS SUMMARY | 2024-12-20 19:24 | XMS_ITS | Patient Health Record ---
Author Organization [facility] Address [address] [place] [address] Care Team Providers Care Credit Reporting Clerk Name Role Phone Edith Kennedy MD Primary [...] 100 GM as directed before c olonoscopy Orally; Duration: 1 dose 06/21/2012 03/07/2024 Active Problems Problem Type SNOMED Code ICD Code Onset Dates Problem Status W/U Status Risk Notes Problem Diarrhea (26614201) Diarrhea (787.91) Active confirmed Problem Colon cancer screening (528550235) Colon cancer screening (V76.51) Active confirmed Plan Of Treatment Future Test Test Name Order Date COLONOSCOPY 06/21/2012 Insurance Providers Payer Name Payer Address Payer Phone Subscriber Number Group Number Insured Name Patient Relationship to Insured Coverage Start Date Coverage End Date O BLUE BCBS PROFESSIONAL CLAIMS [address] [place] [address] [id number] SIERRA JEFFERS Self - patient is the insured Medical (General) History Medical History History ICD Code Denies [place],DM,CVA,renal disease Asthma
== END 2024-12-20 16:30 | disposition home or self-care (01) ==
LOC: HO.HMCH 15:39
PROVIDERS: PCP Internal Medicine; Visit Provider Internal Medicine
DX: I10 Essential (primary) hypertension (principal); E66.9 Obesity, unspecified; Z68.30 Body mass index [BMI] 30.0-30.9, adult; Z12.11 Encounter for screening for malignant neoplasm of colon; G47.33 Obstructive sleep apnea (adult) (pediatric); Z99.89 Dependence on other enabling machines and devices; R79.89 Other specified abnormal findings of blood chemistry

== ENCOUNTER 2025-01-02 15:39 | Outpatient (AMB) | payer BC, SELFPAY ==
[2025-01-02 15:54] VITALS: BP 140/96; PULSE 69; O2SAT 96; BMI 30.5
--- NOTE | 2025-01-02 15:54 | MHC.OFFVIS ---
Vital Signs 01/02/25 15:54 Height 5 ft 10 in Weight 212 lb 11.937 oz BMI 30.5 BP 140/96 H Blood Pressure Location Lt brachial Position Sitting Pulse 69 Pulse Source Pulse Oximeter Pulse Oximetry (%) 96 Oxygen Delivery Method Room Air Intake Visit Reasons: Obstructive sleep apnea Intake Note: pt is here for follow up of sleep study, [place] Production Supervisor Required: No Bilingual Teacher Aide: Bilingual Teacher Aide offered & declined Allergies ibuprofen (IBUPROFEN) Allergy (Intermediate, Verified 01/02/25 16:18) ITCHY EYES, RUNNY NOSE naproxen (Aleve) Allergy (Unknown, Verified 01/02/25 16:18) triggers asthma Medication List - Last Reconciled 01/02/25 by Mauro Douglas MD lisinopril 5 mg PO DAILY Do you need a note to return to daycare/school/sports/work: No HPI HPI Obstructive sleep apnea: Details: This 54 years old gentleman is a known case of obstructive sleep apnea, had initial sleep study back in 2020 , and has been using BiPAP since then. He had a CPAP titration in which is was determined that he needs bilevel pressure of 18/10 cm. After he started on the CPAP he had a few follow-up visits and was noted to be using CPAP very regularly and successfully. Since late 2020 he had not come back for any follow-ups. Now he needed to have a follow-up visit because his machine was showing residual apnea with AHI of as high as 34. He claims that he used CPAP very regularly every night. The residual high E HI count was noted to be due to treatment emergent central apnea. Patient was scheduled to have repeat CPAP titration study which was done on 11/19/2024. This time he was titrated from 4 cm to only 10 cm to achieve optimal results. He was comfortable with nasal mask of medium size, and at pressure of 10 cm all events were eliminated. [facility] Medical History Central sleep apnea Borderline diabetes HTN (hypertension) Asthma AKREN on CPAP Obesity (BMI 30-39.9) Social History Housing: Apartment Alcohol intake: never Patient Tobacco Use Status: Never used Tobacco Tobacco use type: Cigarette e-Cigarette/Vaping Use: Never Used Second Hand Smoke Exposure: No service: No Current occupational status: employed Current occupational exposures/hazards: Yes Cognitive needs: No Hearing needs: No Vision needs: No Review of Systems Const All systems reviewed & are unremarkable except as noted in HPI and below Eyes Reports no additional complaints ENT Reports nasal congestion (OFF AND ON ESPECIALLY AT NIGHTS) Card Reports no additional complaints Resp Reports no additional complaints GI Reports no additional complaints Musc Reports back pain (MILD OFF AND ON) Skin/Breast Reports system reviewed and no additional complaints, except as documented Neuro Reports no additional complaints Endo Reports no additional complaints Physical Exam Vital Signs: Last Vital Signs Pulse 69 01/02/25 15:54 BP 140/96 H 01/02/25 15:54 Pulse Ox 96 01/02/25 15:54 Oxygen Delivery Method Room Air 01/02/25 15:54 BMI result Body Mass Index 30.5 Const General: healthy appearing (EXCEPT FOR BEING OVERWEIGHT, WEIGHT IS DOWN BY 2-3 LB THIS TIME) Orientation/consciousness: patient oriented x3 HEENT Head: Yes normal to inspection General nose exam: No nasal polyps present, No nasal discharge present and Other nasal findings present (MILD NASAL CONGESTION) Face and sinus: Yes sinuses nontender Mouth: oropharynx normal Throat: Yes posterior oropharynx normal Eyes General: appearance normal, both eyes and all related structures Neck Neck: Yes normal visual inspection, Yes no lymphadenopathy, Yes trachea midline and Yes no JVD Thyroid: Thyroid normal Chest Chest palpation & inspection: normal inspection of the chest, normal palpation of entire chest wall and no tenderness Resp Effort & Inspection: normal respiratory effort Auscultation: clear to auscultation bilaterally Percussion: percussion normal Cardio Palpation: normal PMI Rate: regular rate Rhythm: regular rhythm Heart sounds: no gallops and no murmurs Peripheral pulses: Peripheral pulses 2+ throughout GI Palpation (GI): Soft to palpation, nontender, No hepatosplenomegaly present and no masses Auscultation: normal bowel sounds Back/Spine/Pelvis Thoracic/Lumbar Spine: thoracic and lumbar spine normal to inspection Skin General skin exam: no rashes or lesions noted Neuro General: patient oriented x3 and no focal motor deficits Cranial nerves: Yes CN's II-XII intact bilaterally Extrem General: Yes normal to inspection, Yes no clubbing, cyanosis or edema and Yes no calf tenderness Psych Appearance: grossly normal and well kempt Speech and movement: Normal speech and movement present Results Reviewed Results Reviewed: Split night study, the base line part of the study confirmed diagnosis of very severe obstructive sleep apnea with total sleep time AHI 47. CPAP titration performed with application of nasal mask of medium size, and he needed pressure of only 10 cm to eliminate most of the obstructive events also at this pressure there were no central events. Assessment & Plan Assessment & Plan (1) KAREN on CPAP: Comment: He has been using bilevel CPAP with pressure setting of 20/8 CMS Tolerates the CPAP well, and his compliance is good. Currently using nasal mask which is more comfortable. His compliance report was showing high AHI, which was predominantly due to central apneas. This was considered to be due to treatment emergent central apnea. Code(s): G47.33 - Obstructive sleep apnea (adult) (pediatric); Z99.89 - Dependence on other enabling machines and devices Category: Medical Plan: Patient was subjected to retitration. And he did very well just with a low CPAP of 10 cm, using the nasal mask. We are going to reset his pressure from BiPAP to CPAP of 10 cm, and will monitor his. compliance and benefits (2) Central sleep apnea: Comment: He had significant residual apneas which are mostly central apneas. No clear-cut cause was identified for the central apneas, so most likely it was due to high pressure. As the pressure was lowered to 10 cm all the central. Events cleared Code(s): G47.31 - Primary central sleep apnea Category: Medical Plan: He will use CPAP with pressure of 10 cm, only. (3) Obesity (BMI 30-39.9): Comment: His baseline weight was 244 lb. He has lost about 24 lbs lb. since 2020 . Code(s): E66.9 - Obesity, unspecified Category: Medical Plan: Advised to watch diet and if he could lose about 5-10 more lb will be good for. Coding Level of Care Code Est Pt Level 3 (57996) Diagnoses KAREN on CPAP G47.33; Z99.89 Central sleep apnea G47.31 Obesity (BMI 30-39.9) E66.9
--- OUTSIDE RECORDS SUMMARY | 2025-01-02 19:54 | XMS_ITS | Patient Health Record ---
Author Organization [facility] Address [address] [place] [address] Care Team Providers Care Senior Pl Sql Developer Name Role Phone Edith Kennedy MD Primary Care Provider Lisandra Caldera Jr, Andres Garcia Allergies Allergen (clinical drug ingredient) Drug/Non Drug Allergy documented on EMR Reaction Allergy Type Onset Date Status ibuprofen Ibuprofen Unknown Drug Allergy Active Aleve Unknown Drug Allergy Active Reason For Referral No Information Medications Medication SIG (Take, Route, Fr equency, Duration) Notes Start Date End Date Status ProAir HFA Active Albuterol 03/07/2025 03/07/2025 Active MoviPrep 100 GM as directed before c olonoscopy Orally; Duration: 1 dose 06/21/2012 03/07/2025 Active Problems Problem Type SNOMED Code ICD Code Onset Dates Problem Status W/U Status Risk Notes Problem Diarrhea (13571398) Diarrhea (787.91) Active confirmed Problem Colon cancer screening (879260053) Colon cancer screening (V76.51) Active confirmed Plan Of Treatment Future Test Test Name Order Date COLONOSCOPY 06/21/2012 Next Appt Details Provider Name:Andres james Jr, 05/09/2025 03:55:00 PM, [address], [address], [place], [address], Insurance Providers Payer Name Payer Address Payer Phone Subscriber Number Group Number Insured Name Patient Relationship to Insured Coverage Start Date Coverage End Date O [employer] CLAIMS [address] [place] [address] [id number] [employer] Self - patient is the insured Medical (General) History Medical History History ICD Code Denies ID,DM,CVA,renal disease Asthma
--- OUTSIDE RECORDS SUMMARY | 2025-01-02 19:54 | XMS_ITS | Encounter Summary ---
Author Organization [facility] Address [address] [place] [address] Care Team Providers Care Cabana Attendant Name Role Phone Tori Mathews MD Primary Care Provider Hattie Diop MD Primary Care Provider Barber Espinoza Primary Care Provider Encounter Details Date Type Department Care Team Description 01/11/2019 Orders Only Medical Records [address] [place] [address] Barbara Acosta PA-C Social History Tobacco Use Types Packs/Day Years Used Date Smoking Tobacco: Never Smokeless Tobacco: Never Alcohol Use Standard Drinks/Week Comments No 0 (1 standard drink = 0.6 oz pur e alcohol) Sex Assigned at Date Recorded Not on file documented as of this encounter Plan of Treatment Not on file documented as of this encounter Procedures Procedure Name Priority Date/Time Associated Diagnosis Comments OUTSIDE SLEEP STUDY Routine 01/07/2019 documented in this encounter Results * OUTSIDE SLEEP STUDY (01/07/2019) Barbara Acosta PA-C PULMONOLOGY documented in this encounter Visit Diagnoses Not on filedocumented in this encounter Care Teams Cabana Attendant Relationship Specialty Start Date End Date Tori Mathews MD PCP - General Internal Medicine 11/24/17 02/03/21 Hattie Vance MD PCP - General Internal Medicine 02/04/21 06/29/23 Barber Puente [address], [place] [id number] PCP - General Internal Medicine 06/30/23 documented as of this encounter
== END 2025-01-02 16:14 | disposition home or self-care (01) ==
LOC: HO.HPS 15:40
PROVIDERS: PCP Internal Medicine; Visit Provider Internal Medicine
DX: G47.33 Obstructive sleep apnea (adult) (pediatric) (principal); Z99.89 Dependence on other enabling machines and devices; G47.31 Primary central sleep apnea; E66.9 Obesity, unspecified
CPT/HCPCS: 99213